=== PATIENT | female | born 1975 | race Caucasian/White ===

== ENCOUNTER 2024-08-20 20:40 | Inpatient (IN) ==
[2024-08-20 21:39] LABS: Albumin Globulin Ratio 1.3 (0.9-2); Albumin Level 4.3 gm/dl (3.4-5.0); BUN Creatinine Ratio 25.3 (10-20); Bilirubin,Total 0.3 mg/dl (0.2-1.0); Calcium 9.2 mg/dl (8.6-10.3); Creatinine Clr Calc Pharmacy 96.9 ml/min; Globulin 3.2 gm/dl (2.5-4.0); Potassium 3.5 mmol/L (3.5-5.1); Total Protein 7.5 gm/dl (6.0-8.3)
[2024-08-20 21:41] LABS: Basophils # (auto) 0.04 K/uL (0.00-0.20); Basophils % (auto) 0.4 %; Eosinophils # (auto) 0.18 K/uL (0.00-0.50); Eosinophils % (auto) 1.9 %; Hematocrit (blood only) 40.7 % (37.0-47.0); Immature Granulocytes # (auto) 0.04 K/uL (0.01-0.20); Immature Granulocytes % (auto) 0.4 %; Lymphocytes # (auto) 2.76 K/uL (1.20-3.40); Lymphocytes % (auto) 29.3 %; Mean Corpuscular Hemoglobin 32.6 pg (25.0-34.0); Mean Corpuscular Hgb Conc 34.4 g/dL (32.0-36.0); Mean Corpuscular Volume 94.7 fL (80.0-100.0); Mean Platelet Volume 11.7 fL (9.4-12.4); Monocytes # (auto) 0.66 K/uL (0.11-0.59); Neutrophils # (auto) 5.73 K/uL (1.40-6.50); Platelet Count 202 K/uL (130-400); RDW Standard Deviation 41.9 fL (36.4-46.3); White Blood Count 9.41 K/ul (4.8-10.8)
[2024-08-20 21:43] LABS: INR 0.9 (0.9-1.1); Partial Thromboplastin Ratio 0.9; Partial Thromboplastin Time 25 Seconds (21-31); Prothrombin Time 9.8 Seconds (9.0-12.0)
[2024-08-20 21:45] LABS: Troponin I High Sensitivity 46.6 pg/ml (0-14)
[2024-08-20 21:54] LABS: Adenovirus PCR Not Detected (NotDetected); Bordetella parapertussis PCR Not Detected (NotDetected); Bordetella pertussis PCR Not Detected (NotDetected); Chlamydia pneumoniae PCR Not Detected (NotDetected); Coronavirus 229E PCR Not Detected (NotDetected); Coronavirus CoV-2 (COVID19)PCR Not Detected (NotDetected); Coronavirus HKU1 PCR Not Detected (NotDetected); Coronavirus NL63 PCR Not Detected (NotDetected); Coronavirus OC43PCR Not Detected (NotDetected); Human Metapneumovirus PCR Not Detected (NotDetected); Influenza A PCR Not Detected (NotDetected); Influenza B PCR Not Detected (NotDetected); Mycoplasma pneumoniae PCR Not Detected (NotDetected); Parainfluenza Virus 1 PCR Not Detected (NotDetected); Parainfluenza Virus 2 PCR Not Detected (NotDetected); Parainfluenza Virus 3 PCR Not Detected (NotDetected); Parainfluenza Virus 4 PCR Not Detected (NotDetected); Respiratory Syncytial VirusPCR Not Detected (NotDetected); Rhinovirus/Enterovirus PCR DETECTED (NotDetected)
[2024-08-20] MEDS: SODIUM CHLORIDE 0.9% 1,000 ML IV ONE (22:03)
[2024-08-20] MEDS: dexAMETHasone**PF** 10 MG/ML VIAL IV ONE (22:03)
[2024-08-20] MEDS: ALBUT/IPRATROP 3MG/0.5MG NEB 3 ML VIAL NEB STA (22:03)
--- NOTE | 2024-08-20 22:13 | Emergency Department Note ---
History of Present Illness General Chief complaint: Shortness of Breath/Dyspnea Stated complaint: SOB, FELL HIT HEAD, Time Seen by Provider: 08/20/24 21:53 History of Present Illness This 49-year-old female that smokes presents ER complaint of chest pain, difficulty breathing and coughing who passed out today and struck her head. Patient states she feels quite short of breath. No history of PE DVT or heart disease. She does not go to the doctor. She has traveled recently. Patient denies fever, chills, leg pain or swelling, abdominal pain, vomiting, diarrhea. Home Medications Medication Instructions Recorded Confirmed Type ASPIRIN 650 mg PO UD PRN Irregular Heart 12/20/15 History Rate ##0 Albuterol Inhaler (VENTOLIN 2 puff inhalation UD PRN Shortness 12/20/15 History INHALER) of Breath #0 Inhalers Allergies Allergy/AdvReac Type Severity Reaction Status Date / Time No Known Allergies Allergy Unverified 03/28/15 21:41 Past Med/Surg History Problem List (Updated 08/21/24 @ 02:57 by Laine Jimenez PA-C) Acute bronchitis due to Rhinovirus (Acute) Shortness of breath Elevated troponin Sinusitis, acute (Acute) Pulmonary embolism (Acute) Bronchitis (Acute) Lumbar strain (Acute) Palpitations (Acute) Precordial chest pain (Acute) Social History Smoking Status: Current every day smoker Tobacco Type: Cigarettes Second Hand Exposure: Yes; Do You Dip or Chew Tobacco: No; Hx Alcohol Use: Yes Alcohol type: beer Hx Substance Use: Yes Preferred Language: Welsh Communication Ability: Effective Food Processor Required: No Beliefs That Will Affect Care: None Current Living Situation: Other Current Living Situation Comment: Nephew Other Information That Helps Us Care for You: No Feels Safe at Home: Yes Safety Concerns: Feels Safe At This Time Assistive Devices: None Review of Systems A total of 10 systems reviewed and were otherwise negative Physical Exam Vital Signs Vital Signs - 24 hr 08/20/24 20:47 08/20/24 20:51 08/20/24 21:59 Temperature 36.6 C Temperature Source Oral Pulse Rate 111 H 110 H Pulse Rate from SpO2 Sensor Respiratory Rate 20 Respiratory Effort / Characteristics Non-Labored Non-Labored Spontaneous Respiratory Depth Normal Shallow Respiratory Pattern Regular Blood Pressure 135/91 Blood Pressure Mean 105 Pulse Oximetry 91 Oxygen Delivery Method Room Air Room Air Sepsis Recent Fever Within 48 Hours No Sepsis New/Unexplained Change in Mental Status N/A Sepsis Action Taken by Nursing No Action Required 08/20/24 22:42 08/20/24 23:06 Temperature Temperature Source Pulse Rate 111 H Pulse Rate from SpO2 Sensor 109 H Respiratory Rate 22 Respiratory Effort / Characteristics Respiratory Depth Respiratory Pattern Blood Pressure 137/91 Blood Pressure Mean 106 Pulse Oximetry 93 96 Oxygen Delivery Method Room Air Room Air Sepsis Recent Fever Within 48 Hours Sepsis New/Unexplained Change in Mental Status Sepsis Action Taken by Nursing VITALS: Vitals are noted on the nurse's note and reviewed by myself. Vital signs pulse ox 91%. GENERAL: White female working to breathe, in acute distress, nondiaphoretic, well-developed well-nourished. SKIN: The skin was without rashes, erythema, edema, or bruising. There is no tenting of the skin. Capillary reflex less than 2 seconds. HEAD: Normocephalic atraumatic. EARS: External auditory canals clear EYES: Pupils equal round and reactive to light and accommodation. Conjunctivae without injection, sclerae without icterus. Extraocular movements intact. NOSE: Patent, no discharge. MOUTH: Mucous membranes moist. Pharynx without erythema or exudate. Uvula midline. Airway patent. Tongue does not deviate. NECK: Supple without nuchal rigidity. No lymphadenopathy. No thyromegaly. Cervical spine is nontender. No JVD. HEART: Regular rate and rhythm LUNGS: Diffuse inspiratory and end expiratory wheezes, No retractions or accessory muscle use. ABDOMEN: Positive bowel sounds x 4. Normal tympanic percussion. Soft, nontender, without masses or organomegaly. Vo sign negative. No guarding or rebound tenderness. No CVA tenderness MUSCULOSKELETAL: No muscle atrophy, erythema, or edema noted. NEURO: Patient was alert and oriented to person place and time. Normal sensation to light and sharp touch. No focal neurological deficits. Course Administered Medications Heparin Sodium/Dextrose (Heparin Sodium/Dextrose) 25,000 units in 500 mls @ 25 mls/hr IV .Q20H [facility]; Protocol Stop: 09/19/24 22:59 Last Titration: 08/21/24 00:55 Dose: 1,250 units/hr, 25 mls/hr Documented By: MIAN Co-signed By: Admin: 08/20/24 23:41 Dose: 1,250 units/hr, 25 mls/hr Documented By: Co-signed By: DEANN Discontinued Medications Albuterol (Albut/Ipratrop 3mg/0.5mg Neb 3 Ml Vial) 3 ml NEB NOW STA; Protocol Stop: 08/20/24 21:59 Last Admin: 08/20/24 22:03 Dose: 3 ml Documented By: JAY Dexamethasone Sodium Phosphate (DexamethasonePf 10 Mg/Ml Vial) 10 mg IV NOW ONE Stop: 08/20/24 22:00 Last Admin: 08/20/24 22:03 Dose: 10 mg Documented By: JAY Heparin Sodium (Porcine) (Heparin Sod (Porcine) 1000 Unit/Ml) 5,000 units IV NOW ONE Stop: 08/20/24 23:31 Last Admin: 08/20/24 23:40 Dose: 5,000 units Documented By: Co-signed By: DEANN Sodium Chloride (Nss) 1,000 mls @ 999 mls/hr IV .Q1H1M ONE Stop: 08/20/24 22:58 Last Infusion: 08/20/24 23:12 Dose: Infused Documented By: Admin: 08/20/24 22:03 Dose: 999 mls/hr Documented By: JAY Ampicillin Sodium/Sulbactam Sodium (Unasyn) 1,500 mg in 100 mls @ 200 mls/hr IV NOW STA Stop: 08/20/24 23:36 Last Infusion: 08/21/24 01:30 Dose: Infused Documented By: Admin: 08/21/24 00:43 Dose: 200 mls/hr Documented By: Ioversol (Optiray 320 125ml) 118 ml IV ONCE ONE Stop: 08/20/24 22:25 Last Admin: 08/20/24 22:24 Dose: 118 ml Documented By: LAKESHA Critical Care Time Critical Care Time: Yes Total Critical Care Time: 35 I have personally spent 35 minutes of critical care time in the direct management of this patient. This includes bedside care, interpretation of diagnostic studies, and testing, discussion with consultants, patient, and family members, and other required patient management activities. This 35 minutes is in excess of all separately billable procedures. Medical Decision Making Medical Records Attestation: I reviewed the patient's medical records. Home Medications Current Medication List: was personally reviewed by me Laboratory Data Attestation: I reviewed the patient's lab results. 08/20/24 20:58 08/20/24 20:58 Lab Results 08/20/24 08/20/24 08/20/24 Range/Units 20:50 20:58 22:38 WBC 9.41 (4.8-10.8) K/ul RBC 4.30 (4.20-5.40) M/uL Hgb 14.0 (12.0-16.0) g/dl Hct 40.7 (37.0-47.0) % MCV 94.7 (80.0-100.0) fL MCH 32.6 (25.0-34.0) pg MCHC 34.4 (32.0-36.0) g/dL RDW Std Deviation 41.9 (36.4-46.3) fL RDW Coeff of Shanti 12.0 (11.5-14.5) % Plt Count 202 (130-400) K/uL MPV 11.7 (9.4-12.4) fL Immature Gran % (Auto) 0.4 % Neut % (Auto) 61.0 % Lymph % (Auto) 29.3 % [place] % (Auto) 7.0 % Eos % (Auto) 1.9 % Baso % (Auto) 0.4 % Neut # (Auto) 5.73 (1.40-6.50) K/uL Lymph # (Auto) 2.76 (1.20-3.40) K/uL [place] # (Auto) 0.66 H (0.11-0.59) K/uL Eos # (Auto) 0.18 (0.00-0.50) K/uL Baso # (Auto) 0.04 (0.00-0.20) K/uL Immature Gran # (Auto) 0.04 (0.01-0.20) K/uL PT 9.8 (9.0-12.0) Seconds INR 0.9 (0.9-1.1) APTT 25 (21-31) Seconds PTT Ratio 0.9 Sodium 137 (136-145) mmol/L Potassium 3.5 (3.5-5.1) mmol/L Chloride 105 (98-107) mmol/L Carbon Dioxide 21 (21-32) mmol/L Anion Gap 11 (3-11) BUN 20 (6-23) mg/dl Creatinine 0.79 (0.6-1.2) mg/dl Est Cr Clr Drug Dosing 96.9 ml/min eGFR 92.21 BUN/Creatinine Ratio 25.3 H (10-20) Glucose 153 H (70-99(Fasting)) mg/dl Calcium 9.2 (8.6-10.3) mg/dl Magnesium 1.9 (1.7-2.4) mg/dl Total Bilirubin 0.3 (0.2-1.0) mg/dl AST 44 H (13-39) U/L ALT 29 (7-52) U/L Alkaline Phosphatase 79 (34-104) U/L Troponin I High Sens 46.6 H 443.9 H* D (0-14) pg/ml Total Protein 7.5 (6.0-8.3) gm/dl Albumin 4.3 (3.4-5.0) gm/dl Globulin 3.2 (2.5-4.0) gm/dl Albumin/Globulin Ratio 1.3 (0.9-2) TSH 3.774 (0.300-4.500) uIu/ml HCG, Qual Negative (Negative) Adenovirus (PCR) Not Detected (NotDetected) B. pertussis DNA (PCR) Not Detected (NotDetected) B.parapertussis DNA PCR Not Detected (NotDetected) C. pneumoniae DNA (PCR) Not Detected (NotDetected) Coronavirus OC43 (PCR) Not Detected (NotDetected) Coronavirus HKU1 (PCR) Not Detected (NotDetected) Coronavirus 229E (PCR) Not Detected (NotDetected) SARS-CoV-2 (PCR) Not Detected (NotDetected) Coronavirus NL63 (PCR) Not Detected (NotDetected) Human Metapneumovir PCR Not Detected (NotDetected) Influenza Type A (PCR) Not Detected (NotDetected) Influenza Type B (PCR) Not Detected (NotDetected) M. pneumoniae (PCR) Not Detected (NotDetected) Parainfluenza 1 (PCR) Not Detected (NotDetected) Parainfluenza 2 (PCR) Not Detected (NotDetected) Parainfluenza 3 (PCR) Not Detected (NotDetected) Parainfluenza 4 (PCR) Not Detected (NotDetected) RSV (PCR) Not Detected (NotDetected) Entero/Rhino (PCR) DETECTED A (NotDetected) Imaging Data Attestation: I personally reviewed and interpreted this imaging study as follows: Radiologist's Impression: Chest CTA 08/20/24 21:54 CR Exam(s): CTA CHEST IV Amt: 117 cc opti 320 EXAM: CT Angiography Chest With Intravenous Contrast CLINICAL HISTORY: Reason for exam: PE. TECHNIQUE: Axial computed tomographic angiography images of the chest with intravenous contrast. CTDI is 27.22 mGy and DLP is 906.3 mGy-cm. Automated exposure control was utilized for the study. A dose lowering technique was utilized adhering to the principles of ALARA. MIP reconstructed images were created and reviewed. COMPARISON: CTA chest: 12/21/2015 FINDINGS: Pulmonary arteries: Demonstrates bilaterally abnormal intraluminal filling defects/acute pulmonary emboli involving upper/lower lobar and segmental arterial branches. There is evidence of RV dysfunction with abnormal RV/LV ratio. Aorta: No acute findings. No thoracic aortic aneurysm. Lungs: Central airways are patent. Mild bilateral bronchial wall thickening. No mass. No consolidation. Pleural space: Unremarkable. No significant effusion. No pneumothorax. Heart: Unremarkable. No cardiomegaly. No significant pericardial effusion. Bones/joints: No acute fracture. No dislocation. Soft tissues: Unremarkable. Lymph nodes: Unremarkable. No enlarged lymph nodes.. IMPRESSION: Bilateral acute pulmonary embolism with evidence of RV dysfunction. . Communications: Call Doctor Pulmonary Embolism Electronically signed by: Freedom Burnham MD, DABR 08/21/24 02:[address] 08/20/24 21:58 Exam(s): CT HEAD Without Contrast EXAM: CT Head Without Intravenous Contrast CLINICAL HISTORY: Reason for exam: HI. TECHNIQUE: Axial computed tomography images of the head/brain without intravenous contrast. CTDI is 36.05 mGy and DLP is 546.36 mGy-cm. Automated exposure control was utilized for the study. A dose lowering technique was utilized adhering to the principles of ALARA. COMPARISON: None. FINDINGS: Motion/beam hardening-induced image degradation limits anatomical details. Brain: Unremarkable. No hemorrhage. No significant white matter disease. No edema. Ventricles: Unremarkable. No ventriculomegaly. Bones/joints: Unremarkable. No acute fracture. Soft tissues: Unremarkable. Sinuses: Moderately severe bilateral ethmoid sinusitis. Left sphenoid sinusitis.. Mastoid air cells: Unremarkable as visualized. No mastoid effusion. IMPRESSION: No acute intracranial abnormality noted. Moderately severe bilateral ethmoid sinusitis. Mild/moderate left sphenoid sinusitis. . Electronically signed by: Freedom Burnham MD, VALERIER 08/20/24 23:06 PM MDM Narrative Prior records/ancillary studies reviewed. Triage Nursing notes reviewed. Additional history obtained from the family. The patient's history was concerning for respiratory difficulties. Differential diagnosis: Etiologies such as infections, reactive airway disease, pneumonia, pneumothorax, COPD, CHF, cardiac ischemia, pulmonary embolism, musculoskeletal, gastrointestinal, as well as others were entertained. Physical examination: As above. ER treatment provided: An order was placed for continuous cardiac monitoring. The monitor shows a rate of 60-1 20 with a sinus rhythm per my interpretation. Nebulizer, steroids, IV fluids Limited Point of Care FAST Ultrasound performed by me: Indication: Syncope Findings: Limited cardiac ultrasonography via subxiphoid and parasternal long view showed cardiac wall motion activity, no pericardial fluid, no tamponade. Limited chest ultrasound revealed bilateral lung sliding. Limited abdominal ultrasound revealed no free fluid within Bone's pouch, splenorenal space, or the pouch of Griffin. Impression: Negative FAST exam. Heparin was ordered for PEs Unasyn was ordered for extensive sinusitis On reassessment the patient felt better. Diagnostic interpretation by me: The electrocardiogram was ordered for SOB. ECG: Normal sinus, normal intervals, minimal ST depression in V5 and V6, rate of 109. Impression sinus tachycardia with minimal ST depression in the lateral leads independently interpreted by myself EKG ordered for elevated troponin EKG: Normal sinus, normal intervals, no acute ST-T wave changes, persistent minimal ST depression in V5 and V6 with rate of 106. Impression sinus tachycardia with unchanged ST depression in the lateral leads independently interpreted by myself The labs Independently Interpreted by myself revealed elevated troponin repeat was ordered Positive rhinovirus on bio fire Hypercoagulable workup was sent Imaging studies: Chest x-ray with no acute consolidation, pneumothorax or free air per my independent interpretation CTA concerning for PEs and hypercoagulable workup was initiated. Heparin drip was ordered Negative head CT HEART SCORE: Hx: high/mod/low suspicion: 1 ECG: ST depression/nonspecific changes/normal: 1 Age: Greater than 65/45-64/less than 45: 1 Risk factors: (Hypertension, hyperlipidemia, diabetes, coronary disease, tobacco use, cocaine use): 1 Troponin: Greater than 2 times normal limits/1-2 times normal limits/normal: 1 Total: 4 Consultation: A consultation was placed with the hospitalist. The case was discussed and diagnostics were reviewed. The patient was evaluated in the ER for further treatment. PESI Score Age: 49 Male gender: 0 History of cancer: 0 Heart failure: 0 Chronic lung disease: 0 Pulse >=10/min: 20 Systolic blood pressure <100 mmH Respiratory rate >=0/min: 0 Temperature <36 Celcius: 0 Altered mental status: 0 Arterial oxygen saturation <90 percent: 0 Total: 68 Class I Low risk <66 Class II 66 to 85 Class III High risk 86 to 105 Class IV 106 to 125 Class V >125 This appears to be consistent with bilateral PEs with sinusitis. Patient was heparinized as above. Repeat EKG is unchanged. She was started antibiotics for the sinus infection. Medicine was consulted case discussed. Patient will be admitted to the medical service.. By the evaluation outlined above emergent etiologies such as CHF, reactive airway disease, pneumothorax, musculoskeletal, serious bacterial infections, as well as others were deemed relatively unlikely. The pt informed about the findings as listed above. All questions were answered and pleased with the treatment. The chart was completed utilizing Hubs1 Speech voice recognition software. Grammatical errors, random word insertions, pronoun errors, and incomplete sentences are an occassional consequence of this system due to software limitations, ambient noise, and hardware issues. Any formal questions or concerns about the content, text, or information contained within the body of this dictation should be directly addressed to the physician assistant womens volleyball coach for clarification. Impression & Plan Pulmonary embolism, Sinusitis, acute, Acute bronchitis due to Rhinovirus Discharge Plan Visit Data Chief Complaint: Shortness of Breath/Dyspnea Stated Complaint: SOB, FELL HIT HEAD, ED Provider: Georgina Al ED Midlevel Provider: Laine Jimenez Discharge Problem: Pulmonary embolism, Sinusitis, acute, Acute bronchitis due to Rhinovirus Patient Disposition: Admitted As Inpatient Condition: Fair Discharge Instructions Interventions: ED Discharge Assessment Last Done: 08/21/24 01:29 Discharge Problem: Pulmonary embolism Qualifiers: Pulmonary embolism type: unspecified Chronicity: acute Acute cor pulmonale presence: unspecified Qualified Code(s): I26.99 - Other pulmonary embolism without acute cor pulmonale
[2024-08-20 22:20] LABS: Magnesium 1.9 mg/dl (1.7-2.4)
[2024-08-20 22:22] LABS: Pregnancy Test, Serum Negative (Negative)
[2024-08-20] MEDS: OPTIRAY 320 125ml IV ONE (22:24)
[2024-08-20 22:37] LABS: Thyroid Stimulating Hormone 3.774 uIu/ml (0.300-4.500)
[2024-08-20] MEDS ORDERED: Heparin IV Adult Wt-Based Standard w/ INITIAL Bolus Protocol IV STA (22:41)
[2024-08-20] MEDS ORDERED: HEPARIN SOD (PORCINE) 1000 UNIT/ML IV ONE (22:56)
--- NOTE | 2024-08-20 23:07 | CT Scan Report ---
Exam(s): CT HEAD Without Contrast EXAM: CT Head Without Intravenous Contrast CLINICAL HISTORY: Reason for exam: HI. TECHNIQUE: Axial computed tomography images of the head/brain without intravenous contrast. CTDI is 36.05 mGy and DLP is 546.36 mGy-cm. Automated exposure control was utilized for the study. A dose lowering technique was utilized adhering to the principles of ALARA. COMPARISON: None. FINDINGS: Motion/beam hardening-induced image degradation limits anatomical details. Brain: Unremarkable. No hemorrhage. No significant white matter disease. No edema. Ventricles: Unremarkable. No ventriculomegaly. Bones/joints: Unremarkable. No acute fracture. Soft tissues: Unremarkable. Sinuses: Moderately severe bilateral ethmoid sinusitis. Left sphenoid sinusitis.. Mastoid air cells: Unremarkable as visualized. No mastoid effusion. IMPRESSION: No acute intracranial abnormality noted. Moderately severe bilateral ethmoid sinusitis. Mild/moderate left sphenoid sinusitis. . Electronically signed by: Freedom Burnham MD, DABR 08/20/24 23:06 PM
--- NOTE | 2024-08-20 23:38 | History & Physical Report ---
Date of Service August 20, 2024 Assessment & Plan (1) Pulmonary embolism: (2) Sinusitis, acute: (3) Elevated troponin: (4) Shortness of breath: Plan 49 year old female, current everyday smoker, presenting after acute worsening of SOB with associated syncopal episode and head trauma. #Bilateral PEs/Elevated Troponin: - EKG on admission with sinus tachycardia, rate 106, no ischemic changes appreciated. - CTA notable for bilateral PEs, LE venous doppler pending, thrombophilia labs pending - Continue heparin drip - Troponin 47->444, continue to trend troponin - TTE ordered, pending #Acute sinusitis/shortness of breath: - Respiratory Biofire +entero/rhinovirus - CT head with bilateral ethmoid sinusitis + left sphenoid sinusitis - will treat with PO Augmentin BIDx5-7 days - Suspect some component of RAD based on smoking history and exam findings - tx with PO prednisone 40mg dailyx5 days + prn duonebs - AM labs: CBC, BMP Dispo: admit to PCU-tele FEN/GI: regular diet VTE ppx: Heparin Full code History of Present Illness Primary Care Provider: NO PCP 49 year old female, current everyday smoker, presenting after acute worsening of SOB with associated syncopal episode and head trauma. Patient states that she had acute bronchitis at the beginning of July, was treated with abx and given an albuterol inhaler. Again became sick with sinus congestion, cough about 1 week ago with progression of shortness of breath over the week. Today, patient was in [facility] bathroom, suddenly felt her heart racing, had acute worsening of shortness of breath and had a brief syncopal episode. Pt admits to poor PO fluid intake over the past couple days. Denies formal RAD diagnosis but had been using her albuterol this week, total of 8 puffs daily, with some relief. At present, patient denies chest pain, fever/chills, N/V/D but endorses ongoing shortness of breath, minimal change after receiving nebulizer treatment. Denies h/o cardiac issues. Denies h/o prior DVT/PE. Most recent travel was 07/30, drove to [place] continuously without stopping - total of 6 hours in the car. ED Course: CT head with bilateral ethmoid sinusitis and left sphenoid sinusitis, EKG with sinus tachycardia, troponin 46->444, CTA demonstrates bilateral PEs, respiratory biofire +entero/rhinovirus Patient received dose of dexamethasone and nebulizer treatment, 1L IV fluids, started on heparin drip. Allergies Allergy/AdvReac Type Severity Reaction Status Date / Time No Known Allergies Allergy Unverified 08/21/24 13:53 Home Medications Medication Instructions Recorded Confirmed Type No Known Home Medications 08/21/24 08/21/24 History Past Med/Surg History Problem List (Updated 08/21/24 @ 14:55 by NOEMI Ford) COPD (chronic obstructive pulmonary disease) Rhinovirus Lower extremity deep venous thrombosis Bilateral pulmonary embolism Acute bronchitis due to Rhinovirus (Acute) Shortness of breath Elevated troponin Sinusitis, acute (Acute) Pulmonary embolism (Acute) Bronchitis (Acute) Lumbar strain (Acute) Palpitations (Acute) Precordial chest pain (Acute) Social History Smoking Status: Current every day smoker Tobacco Type: Cigarettes Second Hand Exposure: Yes; Do You Dip or Chew Tobacco: No; Hx Alcohol Use: Yes Alcohol type: beer Hx Substance Use: Yes Preferred Language: Kinyarwanda Communication Ability: Effective Electric Detector Operator Required: No Beliefs That Will Affect Care: None Current Living Situation: Other Current Living Situation Comment: Nephew Other Information That Helps Us Care for You: No Feels Safe at Home: Yes Safety Concerns: Feels Safe At This Time Assistive Devices: None Review of Systems Review of Systems: as per HPI Physical Exam Physical Exam: General: Alert and oriented. No acute distress Cardiac: +tachycardia, regular rhythm, no murmurs appreciated Respiratory: +bilateral expiratory wheezes on auscultation, +dyspnea on exertion Extremities: No lower extremity edema, calves non-tender bilaterally Results & Data Results & Data Vital Signs (Past 12 Hours) Vital Signs Temp Pulse Resp BP Pulse Ox O2 Del Method 08/20/24 23:06 111 H 22 137/91 96 Room Air 08/20/24 22:42 93 Room Air 08/20/24 21:59 110 H 08/20/24 20:51 Room Air 08/20/24 20:47 36.6 C 111 H 20 135/91 91 Room Air Supervising Physician Co-Signing Physician Notes Attending addendum: I have physically seen this patient, have supervised the medical residents activities, and agree with the H&P unless as otherwise noted. Assessment and Plan: Bilateral pulmonary emboli/elevated creatinine/right heart strain- The patient will be admitted to telemetry for serial cardiac enzymes, serial EKG's, cardiac rhythm monitoring and a 2-D echocardiogram with Dopplers. Troponin 46.6, with follow-up 443.9 Continue heparin drip per protocol has begun in the ED Conversion to DOAC in the a.m. to be determined by daytime service Nasal cannula oxygen, titrate to keep pulse ox around 94-95% Lower extremity venous Doppler ordered and pending Hypercoagulable panel pending Consult cardiology and pulmonology Enterovirus/rhinovirus infection/sinusitis/COPD- CT head with notation of bilateral ethmoid sinusitis and left sphenoid sinusitis- Patient did receive dexamethasone 10 mg IV and Unasyn 3 g IV from the ED Placed on course of oral Augmentin and prednisone taper as noted Resident Activity Tracking Resident Involvement: Resident Care Provided Care Provided: Adult Hospital Medicine (1) Pulmonary embolism Acute cor pulmonale presence: unspecified Chronicity: acute Pulmonary embolism type: unspecified Qualified Code(s): I26.99 - Other pulmonary embolism without acute cor pulmonale
[2024-08-20] MEDS: HEPARIN SOD (PORCINE) 1000 UNIT/ML IV ONE (23:40)
[2024-08-20] MEDS: HEPARIN SODIUM/DEXTROSE 25,000 UNITS/500 ML BAG IV SCH (23:41)
[2024-08-21] MEDS: AMPICILLIN/SULBACTAM SOD 1,500 MG/100 ML BAG IV STA (00:43)
[2024-08-21] MEDS ORDERED: ALUMINUM/MAGNESIUM SUSP 30 ML UDC PO PRN (01:23)
[2024-08-21] MEDS ORDERED: MAGNESIUM HYDROXIDE SUSP 30 ML UDC PO PRN (01:23)
[2024-08-21] MEDS ORDERED: ALBUT/IPRATROP 3MG/0.5MG NEB 3 ML VIAL NEB PRN (01:23)
[2024-08-21] MEDS ORDERED: POLYETHYLENE (MIRALAX) 17 GM PACK PO PRN (01:23)
--- NOTE | 2024-08-21 02:50 | CT Scan Report ---
Exam(s): CTA CHEST IV Amt: 117 cc opti 320 EXAM: CT Angiography Chest With Intravenous Contrast CLINICAL HISTORY: Reason for exam: PE. TECHNIQUE: Axial computed tomographic angiography images of the chest with intravenous contrast. CTDI is 27.22 mGy and DLP is 906.3 mGy-cm. Automated exposure control was utilized for the study. A dose lowering technique was utilized adhering to the principles of ALARA. MIP reconstructed images were created and reviewed. COMPARISON: CTA chest: 12/21/2015 FINDINGS: Pulmonary arteries: Demonstrates bilaterally abnormal intraluminal filling defects/acute pulmonary emboli involving upper/lower lobar and segmental arterial branches. There is evidence of RV dysfunction with abnormal RV/LV ratio. Aorta: No acute findings. No thoracic aortic aneurysm. Lungs: Central airways are patent. Mild bilateral bronchial wall thickening. No mass. No consolidation. Pleural space: Unremarkable. No significant effusion. No pneumothorax. Heart: Unremarkable. No cardiomegaly. No significant pericardial effusion. Bones/joints: No acute fracture. No dislocation. Soft tissues: Unremarkable. Lymph nodes: Unremarkable. No enlarged lymph nodes.. IMPRESSION: Bilateral acute pulmonary embolism with evidence of RV dysfunction. . Communications: Call Doctor Pulmonary Embolism Electronically signed by: Freedom Burnham MD, DABR 08/21/24 02:49 AM
--- NOTE | 2024-08-21 03:46 | XRay Report ---
Exam(s): XR CXR 1 VIEW EXAM: XR Chest, 1 View CLINICAL HISTORY: Reason for exam: Chest pain, nonspecific. TECHNIQUE: Frontal view of the chest. COMPARISON: No relevant prior studies available. IMPRESSION: 1. No acute cardiopulmonary abnormality. Electronically signed by: Dominik Zamora MD 08/21/24 03:45 AM
--- NOTE | 2024-08-21 03:48 | Ultrasound Report ---
EXAM: US venous doppler LE BI CLINICAL HISTORY: PEs. RLE: No definite DVT detected. Duplication of FV seen, both appear patent. LLE: Duplication of FV seen. Partially occlusive thrombus seen from the Dist FV extending to the prox POP V. Thrombus also detected in on of the sural veins in the calf extending from behind the knee to just before the mid calf. TECHNIQUE: Ultrasound examination of bilateral lower extremity veins was performed in real-time and duplex. One or more of the following were performed- spectral analysis, resistive index, waveform analysis, and pulsed Doppler. COMPARISON: None. FINDINGS: Partially occlusive thrombus is seen from the left distal femoral vein extending to the proximal popliteal vein. Thrombus was also detected in one of the sural veins in the calf extending from behind the knee to just before the mid-calf. Normal phasic, non-pulsatile, and spontaneous flow is noted in the right common femoral, superficial femoral, popliteal, and posterior tibial and peroneal veins. Visualized veins of the right lower extremity demonstrate normal compressibility. No sonographic evidence of acute deep vein thrombosis (DVT) is detected in the visualized veins of the right lower extremity. Duplication of bilateral femoral vein. Compression: Partial flow and partial compression were noted in the distal left superficial femoral, possible proximal popliteal, and sural veins of the left upper leg from knee to mid-calf. The rest of the left veins are normal. All right-sided evaluated veins compress fully with applied transducer pressure. IMPRESSION: 1. Left lower extremity venous findings are suggestive of a partially occlusive thrombus seen from the distal left superficial femoral veins extending to the proximal popliteal vein. Thrombus is also detected in one of the sural veins in the calf extending from behind the knee to just before the mid-calf. A close follow-up is suggested for further confirmation and evaluation, to exclude technical errors if any during this study. 2. No sonographic evidence of acute DVT was detected in the right common femoral, superficial femoral, popliteal posterior tibial, and peroneal veins, at the time of examination. Disclaimer: DVT could be missed early in the disease when the clot burden is minimal. For patients with moderate and high pretest probability of DVT and negative ultrasound, the [employer] clinical guidelines recommend testing with a D-dimer assay or repeat ultrasound in 5-7 days. If symptoms worsen, the Society of radiologists in ultrasound recommends repeating ultrasound even earlier. Electronically signed by Roberto Rizo 08-21-2024 03:48 AM
[2024-08-21 06:04] LABS: Hematocrit (blood only) 36.1 % (37.0-47.0); Hemoglobin 12.7 g/dl (12.0-16.0); Mean Corpuscular Hemoglobin 32.5 pg (25.0-34.0); Mean Corpuscular Hgb Conc 35.2 g/dL (32.0-36.0); Mean Corpuscular Volume 92.3 fL (80.0-100.0); Mean Platelet Volume 11.7 fL (9.4-12.4); Platelet Count 176 K/uL (130-400); RDW Coefficient of Variation 11.8 % (11.5-14.5); RDW Standard Deviation 39.8 fL (36.4-46.3); Red Blood Count 3.91 M/uL (4.20-5.40); White Blood Count 6.34 K/ul (4.8-10.8)
[2024-08-21 06:18] LABS: Calcium 8.8 mg/dl (8.6-10.3); Creatinine Clr Calc Pharmacy 130.9 ml/min
[2024-08-21 06:30] LABS: ANTI-Xa, UFH(UnfractionatedHep 0.47 IU/ml (0.3-0.7)
[2024-08-21] MEDS: AMOXICILLIN/CLAVULANATE 875 MG TAB PO SCH (08:51)
[2024-08-21] MEDS: predniSONE 20 MG TAB PO SCH (08:51)
--- NOTE | 2024-08-21 13:07 | Pulmonary Consultation ---
Date of Consultation August 21, 2024 Assessment & Plan (1) Pulmonary embolism: Acute cor pulmonale presence: unspecified Chronicity: acute Pulmonary embolism type: unspecified Qualified Code(s): I26.99 - Other pulmonary embolism without acute cor pulmonale (2) Acute bronchitis due to Rhinovirus: Plan Impression: 49-year-old female with history of tobacco abuse admitted with acute PE presenting with syncopal event. She has elevated cardiac enzymes and an echocardiogram demonstrating RV strain. Recommendations: 1. Acute PE: Certainly would have considered thrombolysis on presentation given syncopal event and elevated biomarkers however the patient is now almost 24 hours out from her event. I discussed with her risk of bleeding associated with thrombolytics. She think she is doing okay with heparin and wants to continue with heparin for now. Will continue to monitor with consideration for salvage thrombolytics should the patient experience increasing palpitations or recurrent syncope or presyncope. 2. The utility of a thromboembolic evaluation in the acute setting is unclear. Multiple labs have been sent. This is an unprovoked event and given the severity, can easily make an argument for lifelong anticoagulation. At a minimum the patient should get 6 months of anticoagulation. If she wants to stop at that point time would recommend consultation with hematology oncology for evaluation of thrombophilia at that point in time. 3. Age-appropriate cancer screening as the outpatient recommended. 4. COPD: Continue Anoro. Can continue to use nebulized therapies as needed. She is on antibiotics for sinus infection which should cover acute exacerbation of COPD. Smoking cessation recommended. Outpatient PFTs should be obtained. 5. The above recommendations and plan were discussed with the patient as well as with the admitting hospitalist service. Will continue to follow with you. Feel free to contact us with questions or concerns History of Present Illness Attending Physician: Akilah Romero MD History of Present Illness Asked by hospitalist to assist in evaluation management as patient admitted with thromboembolic disease. History is obtained from discussion with the patient as well as review of the electronic medical record. Patient is a 49-year-old female with extensive history of tobacco abuse who has chronic shortness of breath but yesterday experienced acute onset of shortness of breath followed by a syncopal episode at [facility]. She fell down and hit her head was apparently unconscious in the bathroom for an unknown period of time. She eventually was able to get to her friend's car and was brought to the emergency room. She was tachycardic and presyncopal in the emergency room and a CT scan demonstrated thromboembolic disease. Her initial troponin was elevated. Patient has been initiated on heparin. Pulmonary was consulted for additional evaluation and management. The patient reports no prior history of thromboembolic disease. No family history of clotting disorders that she is aware of. She is not particularly sedentary at baseline. No history of trauma. She states she had an abnormal breast exam about 6 years ago but mammogram at that point time was unremarkable. She has not undergone any additional cancer screening. The patient continues to experience shortness of breath with significant activity. No additional syncopal or presyncopal events. She does have some lower extremity edema Allergies Allergy/AdvReac Type Severity Reaction Status Date / Time No Known Allergies Allergy Unverified 03/28/15 21:41 Home Medications Medication Instructions Recorded Confirmed Type ASPIRIN 650 mg PO UD PRN Irregular Heart 12/20/15 History Rate ##0 Albuterol Inhaler (VENTOLIN 2 puff inhalation UD PRN Shortness 12/20/15 History INHALER) of Breath #0 Inhalers Patient History Social History Smoking Status: Current every day smoker Tobacco Type: Cigarettes Second Hand Exposure: Yes; Do You Dip or Chew Tobacco: No; Hx Alcohol Use: Yes Alcohol type: beer Hx Substance Use: Yes Preferred Language: Somali Communication Ability: Effective Almond Huller Required: No Beliefs That Will Affect Care: None Current Living Situation: Other Current Living Situation Comment: Nephew Other Information That Helps Us Care for You: No Feels Safe at Home: Yes Safety Concerns: Feels Safe At This Time Assistive Devices: None Review of Systems Review of Systems: Please refer to admission H&P. No additions or deletions Physical Exam Constitutional: WD/WN, vitals as above Neck: trachea midline, no thyromegaly Respiratory: normal respiratory effort, lungs clear to auscultation Cardiovascular: RRR, no murmur, no edema Gastrointestinal (Abdomen): normal bowel sounds, soft, nontender, no hepatosplenomegaly Musculoskeletal: Extremities: extremities normal to inspection Skin: no rashes, warm and dry Neurologic: Nonfocal exam Lymphatic: no cervical lymphadenopathy Results & Data Results & Data Vital Signs (Past 12 Hours) Vital Signs Temp Pulse Pulse Resp BP Pulse Ox O2 Del Method 08/21/24 11:02 36.8 C 93 H 20 145/94 H 97 Room Air 08/21/24 08:18 36.6 C 101 H 18 131/85 94 Room Air 08/21/24 08:10 Room Air 08/21/24 07:20 99 H 08/21/24 04:00 36.6 C 100 H 22 130/86 94 Room Air 08/21/24 02:00 105 H 08/21/24 01:35 Room Air 08/21/24 01:29 Room Air Critical Care Results & Data Vital Signs (Past 12 Hours) Vital Signs Temp Pulse Pulse Resp BP Pulse Ox O2 Del Method 08/21/24 11:02 36.8 C 93 H 20 145/94 H 97 Room Air 08/21/24 08:18 36.6 C 101 H 18 131/85 94 Room Air 08/21/24 08:10 Room Air 08/21/24 07:20 99 H 08/21/24 04:00 36.6 C 100 H 22 130/86 94 Room Air 08/21/24 02:00 105 H 08/21/24 01:35 Room Air 08/21/24 01:29 Room Air Lab & Micro Results (Past 24 Hours) RBC 3.91 M/uL (4.20-5.40) L 08/21/24 WBC 6.34 K/ul (4.8-10.8) 08/21/24 Hgb 12.7 g/dl (12.0-16.0) 08/21/24 Hct 36.1 % (37.0-47.0) L 08/21/24 MCV 92.3 fL (80.0-100.0) 08/21/24 MCH 32.5 pg (25.0-34.0) 08/21/24 MCHC 35.2 g/dL (32.0-36.0) 08/21/24 RDW Standard Deviation 39.8 fL (36.4-46.3) 08/21/24 RDW Coefficient of Variation 11.8 % (11.5-14.5) 08/21/24 Plt Count 176 K/uL (130-400) 08/21/24 MPV 11.7 fL (9.4-12.4) 08/21/24 Neutrophils (%) (Auto) 61.0 % 08/20/24 Lymphocytes (%) (Auto) 29.3 % 08/20/24 Monocytes # (Auto) 0.66 K/uL (0.11-0.59) H 08/20/24 Eosinophils # (Auto) 0.18 K/uL (0.00-0.50) 08/20/24 Immature Granulocyte % (Auto) 0.4 % 08/20/24 Neutrophils # (Auto) 5.73 K/uL (1.40-6.50) 08/20/24 Lymphocytes # (Auto) 2.76 K/uL (1.20-3.40) 08/20/24 Monocytes # (Auto) 0.66 K/uL (0.11-0.59) H 08/20/24 Eosinophils # (Auto) 0.18 K/uL (0.00-0.50) 08/20/24 Basophils # (Auto) 0.04 K/uL (0.00-0.20) 08/20/24 Immature Granulocyte # (Auto) 0.04 K/uL (0.01-0.20) 4 Na 135 mmol/L (136-145) L 08/21/24 K 4.0 mmol/L (3.5-5.1) 08/21/24 Cl 107 mmol/L (98-107) 08/21/24 CO2 18 mmol/L (21-32) L 08/21/24 Anion Gap 10 (3-11) 08/21/24 BUN 11 mg/dl (6-23) 08/21/24 Creatinine 0.58 mg/dl (0.6-1.2) L 08/21/24 BUN/Creatinine Ratio 19.0 (10-20) 08/21/24 Glu 173 mg/dl (70-99(Fasting)) H 08/21/24 Ca 8.8 mg/dl (8.6-10.3) 08/21/24 Total Bilirubin 0.3 mg/dl (0.2-1.0) 08/20/24 AST 44 U/L (13-39) H 08/20/24 ALT 29 U/L (7-52) 08/20/24 Alkaline Phosphatase 79 U/L (34-104) 08/20/24 TP 7.5 gm/dl (6.0-8.3) 08/20/24 Albumin 4.3 gm/dl (3.4-5.0) 08/20/24 Globulin 3.2 gm/dl (2.5-4.0) 08/20/24 Albumin/Globulin Ratio 1.3 (0.9-2) 08/20/24 Mg 1.9 mg/dl (1.7-2.4) 08/20/24 20:58 Calcium Level 8.8 mg/dl (8.6-10.3) 08/21/24 05:28 Prothromb Time International Ratio 0.9 (0.9-1.1) 08/20/24 20:5 8 Diagnostic Findings (Past 24 Hours) Chest X-Ray 08/20/24 20:52 Exam(s): XR CXR 1 VIEW EXAM: XR Chest, 1 View CLINICAL HISTORY: Reason for exam: Chest pain, nonspecific. TECHNIQUE: Frontal view of the chest. COMPARISON: No relevant prior studies available. IMPRESSION: 1. No acute cardiopulmonary abnormality. Electronically signed by: Dominik Zamora MD 08/21/24 03:45 AM Chest CTA 08/20/24 21:54 CR Exam(s): CTA CHEST IV Amt: 117 cc opti 320 EXAM: CT Angiography Chest With Intravenous Contrast CLINICAL HISTORY: Reason for exam: PE. TECHNIQUE: Axial computed tomographic angiography images of the chest with intravenous contrast. CTDI is 27.22 mGy and DLP is 906.3 mGy-cm. Automated exposure control was utilized for the study. A dose lowering technique was utilized adhering to the principles of ALARA. MIP reconstructed images were created and reviewed. COMPARISON: CTA chest: 12/21/2015 FINDINGS: Pulmonary arteries: Demonstrates bilaterally abnormal intraluminal filling defects/acute pulmonary emboli involving upper/lower lobar and segmental arterial branches. There is evidence of RV dysfunction with abnormal RV/LV ratio. Aorta: No acute findings. No thoracic aortic aneurysm. Lungs: Central airways are patent. Mild bilateral bronchial wall thickening. No mass. No consolidation. Pleural space: Unremarkable. No significant effusion. No pneumothorax. Heart: Unremarkable. No cardiomegaly. No significant pericardial effusion. Bones/joints: No acute fracture. No dislocation. Soft tissues: Unremarkable. Lymph nodes: Unremarkable. No enlarged lymph nodes.. IMPRESSION: Bilateral acute pulmonary embolism with evidence of RV dysfunction. . Communications: Call Doctor Pulmonary Embolism Electronically signed by: Freedom Burnham MD, DABR 08/21/24 02:[address] 08/20/24 21:58 Exam(s): CT HEAD Without Contrast EXAM: CT Head Without Intravenous Contrast CLINICAL HISTORY: Reason for exam: HI. TECHNIQUE: Axial computed tomography images of the head/brain without intravenous contrast. CTDI is 36.05 mGy and DLP is 546.36 mGy-cm. Automated exposure control was utilized for the study. A dose lowering technique was utilized adhering to the principles of ALARA. COMPARISON: None. FINDINGS: Motion/beam hardening-induced image degradation limits anatomical details. Brain: Unremarkable. No hemorrhage. No significant white matter disease. No edema. Ventricles: Unremarkable. No ventriculomegaly. Bones/joints: Unremarkable. No acute fracture. Soft tissues: Unremarkable. Sinuses: Moderately severe bilateral ethmoid sinusitis. Left sphenoid sinusitis.. Mastoid air cells: Unremarkable as visualized. No mastoid effusion. IMPRESSION: No acute intracranial abnormality noted. Moderately severe bilateral ethmoid sinusitis. Mild/moderate left sphenoid sinusitis. . Electronically signed by: Freedom Burnham MD, DABR 08/20/24 23:06 PM Venous Doppler Study 08/20/24 22:47 EXAM: US venous doppler LE BI CLINICAL HISTORY: PEs. RLE: No definite DVT detected. Duplication of FV seen, both appear patent. LLE: Duplication of FV seen. Partially occlusive thrombus seen from the Dist FV extending to the prox POP V. Thrombus also detected in on of the sural veins in the calf extending from behind the knee to just before the mid calf. TECHNIQUE: Ultrasound examination of bilateral lower extremity veins was performed in real-time and duplex. One or more of the following were performed- spectral analysis, resistive index, waveform analysis, and pulsed Doppler. COMPARISON: None. FINDINGS: Partially occlusive thrombus is seen from the left distal femoral vein extending to the proximal popliteal vein. Thrombus was also detected in one of the sural veins in the calf extending from behind the knee to just before the mid-calf. Normal phasic, non-pulsatile, and spontaneous flow is noted in the right common femoral, superficial femoral, popliteal, and posterior tibial and peroneal veins. Visualized veins of the right lower extremity demonstrate normal compressibility. No sonographic evidence of acute deep vein thrombosis (DVT) is detected in the visualized veins of the right lower extremity. Duplication of bilateral femoral vein. Compression: Partial flow and partial compression were noted in the distal left superficial femoral, possible proximal popliteal, and sural veins of the left upper leg from knee to mid-calf. The rest of the left veins are normal. All right-sided evaluated veins compress fully with applied transducer pressure. IMPRESSION: 1. Left lower extremity venous findings are suggestive of a partially occlusive thrombus seen from the distal left superficial femoral veins extending to the proximal popliteal vein. Thrombus is also detected in one of the sural veins in the calf extending from behind the knee to just before the mid-calf. A close follow-up is suggested for further confirmation and evaluation, to exclude technical errors if any during this study. 2. No sonographic evidence of acute DVT was detected in the right common femoral, superficial femoral, popliteal posterior tibial, and peroneal veins, at the time of examination. Disclaimer: DVT could be missed early in the disease when the clot burden is minimal. For patients with moderate and high pretest probability of DVT and negative ultrasound, the [employer] clinical guidelines recommend testing with a D-dimer assay or repeat ultrasound in 5-7 days. If symptoms worsen, the Society of radiologists in ultrasound recommends repeating ultrasound even earlier. Electronically signed by Roberto Rizo 08-21-2024 03:48 AM I & O Totals 24 Hours 08/20/24 08/21/24 08/22/24 06:59 06:59 05:59 Intake Total 1582.083 / 1582.083 Balance 1582.083 / 1582.083 Cumulative 08/20/24 20:40 thru 08/21/24 06:58 Intake Total 1582.083 Balance 1582.083 RT Ventilator Mngmt (Last Documented) Ventilator Ordered Settings Respiratory Rate 20 08/21/24 11:02 Ventilator - PT Measurements Respiratory Rate 20 PG Care Time/CCT Total # of Minutes Spent Total Time Spent with Patient: Total time spent is greater than 50% in coordination of care (as documented) at patient's floor/unit and/or counseling patient: Coding Level of Care Code 21121 IN/OBS CONSULT LVL 4,60M Diagnoses Pulmonary embolism I26.99 Acute cor pulmonale presence: unspecified Chronicity: acute Pulmonary embolism type: unspecified Acute bronchitis due to Rhinovirus J20.6
[2024-08-21] MEDS: UMECLIDINIUM/VILANTEROL 62.5/25MCG 7 PUFFS/INHALER INH SCH (14:35)
--- NOTE | 2024-08-21 14:59 | Hospitalist Progress Note ---
<Statement entered by Akilah Romero MD - 08/21/24 18:27> I have reviewed vital signs, chart notes, labs and imaging. I have personally seen, evaluated and examined the patient. I have also discussed the management of the patient with the JANICE and I agree with the exam findings documented in the history and physical examination and the documented assessment and plan unless otherwise stated below. Kaci is definitely feeling better today though she continues to have dyspnea, she is having some element of COPD exacerbation with wheezing that is improved with steroids and bronchodilators. She is not having any chest pain she was on room air this morning and within normal blood pressure heart rate in the low 100s. She has tolerated being up to the bathroom, however with increased dyspnea. she has no personal or family history of VTE, risk factors include obesity and smoking. She did take a long car ride but that was a few weeks ago she was not clearly symptomatic of DVT although she had some calf cramps over the last few months it was mainly in the opposite calf. she has some mild bruising on her forehead from hitting her head. On my exam she has some increased work of breathing mild expiratory wheezing some coarse breath sounds mildly tachycardic around 100 no murmurs, no leg or calf swelling or tenderness I reviewed the echo with Dr. Mcgrath, unfortunately she does have evidence of acute cor pulmonale with right ventricular strain. Her high-sensitivity troponin is mildly elevated at 500, BNP was not checked. She has distal left femoral nonocclusive DVT extending to the popliteal, head CT was negative for acute intracranial hemorrhage sPESI score is 0 and Pasi score is 48 which is very low risk. Given the echo findings and positive biomarker she is intermediate to high risk PE. I discussed option to transfer to tertiary care center with capability for intra-arterial thrombolysis/thrombectomy and discussed the risks of thrombolysis, she is concerned especially because she did hit her head which is completely valid and would prefer to stay here and continue heparin drip if possible. I consulted Dr. Buckley who also spoke with her she voiced the same opinion. I think this is reasonable considering that she has improved over 24 hours with heparin and other than her echo findings she does not have high risk criteria, and there is additional risk of intracranial hemorrhage given that she did hit her head at the time of her syncopal episode. Were she to develop hemodynamic instability, recurrent syncope/presyncope etc. she should be considered for thrombolysis immediately She is being treated for mild COPD exacerbation and acute sinusitis with augmentin, bronchodilators, steroids with some improvement in this realm. Date of Service August 21, 2024 Assessment & Plan (1) Bilateral pulmonary embolism: Plan: Kaci is a 49 year old woman who was admitted to the hospital 08/20 with bilateral pulmonary embolisms and L lower extremity DVT. Started on Heparin upon admission. - Thrombolysis not started in the ER. Continue Heparin. - Pulm consulted - should the patient experience increased palpitations or syncopal episode, will consider salvage thrombolytics. Consider lifelong anticoagulation. - Protein C, Protein S, Antithrombin III, Factor IV Leiden labs pending. - EKG on admission = Sinus Tachycardia - Continue Heparin drip - BEATRIS - Mild LV hypertrophy, EF > 70%, RV pressure/vol. overload, mod/severe tricuspid regurg, RV systolic pressure 40-50 mmHg, acute cor pulmonale. - Dr. Romero discussed the possibility of transferring for intraarterial thro mbolysis vs. staying here and continuing on heparin - patient would like to stay here and continue with Heparin for now. - Pulm continue to follow (2) Lower extremity deep venous thrombosis: Plan: See #1 (3) Sinusitis, acute: Plan: - Continue Augmentin (4) COPD (chronic obstructive pulmonary disease): Plan: - Currently on Augmentin for sinuses, would cover COPD exac. as well. - Prednisone - Continue Anoro - Nebs as needed Admission and Anticipated Discharge Date Admission Date: August 20, 2024 Carlos Clemons is a 49 y/o woman who presented to the ER with acute worsening of SOB with associated syncopal episode and head trauma. In July she was tx with abx and given albuterol inhaler. Developed progressive shortness of breath over the past week. On 08/20, patient was in [employer] bathroom, suddenly felt her heart racing, had acute worsening of shortness of breath and had a brief syncopal episode. CT head with bilateral ethmoid sinusitis and left sphenoid sinusitis, EKG with sinus tachycardia, troponin 46->444->502->465, CTA demonstrated bilateral PEs, respiratory biofire +entero/rhinovirus, venous doppler showing LLE partially occlusive thrombus from the distal L superficial femoral veins extending to the proximal popliteal vein. Thrombus also detected in one of the sural veins in the calf extending from behind the knee to just before the mid-calf. In the ER, she received a dose of dexamethasone and nebulizer treatment, 1L IV fluids, and was started on heparin drip. Today, patient denies chest pain, fever/chills, N/V/D but endorses ongoing shortness of breath even at rest - reports that this is improved from yesterday. Denies h/o cardiac issues. Denies h/o prior DVT/PE. Most recent travel was 07/30, drove to [place] continuously without stopping - total of 6 hours in the car. + Smoker Review of Systems Constitutional: no fever and no chills Respiratory: + dyspnea, + dyspnea on exertion and + w heezing; no cough Cardiovascular: + dyspnea, + dyspnea on exertion and + c zander pain (R sided); no chest pain and no edema Gastrointestinal: no abdominal pain, no nausea and no vomiting Genitourinary: no dysuria and no difficulty urinating Psychiatric: no problem reported Physical Exam Constitutional: WD/WN, vitals as above Eyes: PERRL, conjunctivae normal, anicteric sclerae ENMT: Ears: no external ear abnormality Nose: no external nose abnormality Neck: normal visual inspection and trachea midline Respiratory: + labored breathing and + audible wheeze s (Expiratory wheezes throughout) Cardiovascular: Rate/Rhythm: regular rate and regular rhythm Extremities: + calf tenderness (Bilateral); no pedal edema and no edema Gastrointestinal (Abdomen): Inspection/Auscultation: normal bowel sounds Percussion/Palpation: abdomen soft; abdomen nontender Musculoskeletal: Extremities: extremities normal to inspection Skin: no rashes, warm and dry Psychiatric: A+Ox3, euthymic affect Results & Data Results & Data Vital Signs (Past 12 Hours) Vital Signs Temp Pulse Pulse Resp BP Pulse Ox O2 Del Method 08/21/24 11:02 36.8 C 93 H 20 145/94 H 97 Room Air 08/21/24 08:18 36.6 C 101 H 18 131/85 94 Room Air 08/21/24 08:10 Room Air 08/21/24 07:20 99 H 08/21/24 04:00 36.6 C 100 H 22 130/86 94 Room Air Laboratory Results 08/21/24 08/21/2408/21/24 Range/Units 08:35 05:28 02:51 WBC 6.34 (4.8-10.8) K/ul RBC 3.91 L (4.20-5.40) M/uL Hgb 12.7 (12.0-16.0) g/dl Hct 36.1 L (37.0-47.0) % MCV 92.3 (80.0-100.0) fL MCH 32.5 (25.0-34.0) pg MCHC 35.2 (32.0-36.0) g/dL RDW Std Deviation 39.8 (36.4-46.3) fL RDW Coeff of Shanti 11.8 (11.5-14.5) % Plt Count 176 (130-400) K/uL MPV 11.7 (9.4-12.4) fL Immature Gran % (Auto) % Neut % (Auto) % Lymph % (Auto) % [place] % (Auto) % Eos % (Auto) % Baso % (Auto) % Neut # (Auto) (1.40-6.50) K/uL Lymph # (Auto) (1.20-3.40) K/uL [place] # (Auto) (0.11-0.59) K/uL Eos # (Auto) (0.00-0.50) K/uL Baso # (Auto) (0.00-0.20) K/uL Immature Gran # (Auto) (0.01-0.20) K/uL PT (9.0-12.0) Seconds INR (0.9-1.1) APTT (21-31) Seconds PTT Ratio Protein C Activity Protein S Activity Antithrombin III Activ Heparin Anti-Xa, Unfract 0.47 (0.3-0.7) IU/ml Factor V Leiden Mutat Factor V Leiden Interp Sodium 135 L (136-145) mmol/L Potassium 4.0 (3.5-5.1) mmol/L Chloride 107 (98-107) mmol/L Carbon Dioxide 18 L (21-32) mmol/L Anion Gap 10 (3-11) BUN 11 (6-23) mg/dl Creatinine 0.58 L (0.6-1.2) mg/dl Est Cr Clr Drug Dosing 130.9 ml/min eGFR 111.56 BUN/Creatinine Ratio 19.0 (10-20) Glucose 173 H (70-99(Fasting)) mg/dl Calcium 8.8 (8.6-10.3) mg/dl Magnesium (1.7-2.4) mg/dl Total Bilirubin (0.2-1.0) mg/dl AST (13-39) U/L ALT (7-52) U/L Alkaline Phosphatase (34-104) U/L Troponin I High Sens 465.5 H* 502.0 H* (0-14) pg/ml Total Protein (6.0-8.3) gm/dl Albumin (3.4-5.0) gm/dl Globulin (2.5-4.0) gm/dl Albumin/Globulin Ratio (0.9-2) Homocysteine TSH (0.300-4.500) uIu/ml HCG, Qual (Negative) Adenovirus (PCR) (NotDetected) B. pertussis DNA (PCR) (NotDetected) B.parapertussis DNA PCR (NotDetected) C. pneumoniae DNA (PCR) (NotDetected) Coronavirus OC43 (PCR) (NotDetected) Coronavirus HKU1 (PCR) (NotDetected) Coronavirus 229E (PCR) (NotDetected) SARS-CoV-2 (PCR) (NotDetected) Coronavirus NL63 (PCR) (NotDetected) Human Metapneumovir PCR (NotDetected) Influenza Type A (PCR) (NotDetected) Influenza Type B (PCR) (NotDetected) M. pneumoniae (PCR) (NotDetected) Parainfluenza 1 (PCR) (NotDetected) Parainfluenza 2 (PCR) (NotDetected) Parainfluenza 3 (PCR) (NotDetected) Parainfluenza 4 (PCR) (NotDetected) RSV (PCR) (NotDetected) Entero/Rhino (PCR) (NotDetected) Prothrombin Gene Mutate Prothromb Gene Comment 08/20/24 08/20/24 08/20/24 Range/Units 23:34 22:38 20:58 WBC 9.41 (4.8-10.8) K/ul RBC 4.30 (4.20-5.40) M/uL Hgb 14.0 (12.0-16.0) g/dl Hct 40.7 (37.0-47.0) % MCV 94.7 (80.0-100.0) fL MCH 32.6 (25.0-34.0) pg MCHC 34.4 (32.0-36.0) g/dL RDW Std Deviation 41.9 (36.4-46.3) fL RDW Coeff of Shanti 12.0 (11.5-14.5) % Plt Count 202 (130-400) K/uL MPV 11.7 (9.4-12.4) fL Immature Gran % (Auto) 0.4 % Neut % (Auto) 61.0 % Lymph % (Auto) 29.3 % [place] % (Auto) 7.0 % Eos % (Auto) 1.9 % Baso % (Auto) 0.4 % Neut # (Auto) 5.73 (1.40-6.50) K/uL Lymph # (Auto) 2.76 (1.20-3.40) K/uL [place] # (Auto) 0.66 H (0.11-0.59) K/uL Eos # (Auto) 0.18 (0.00-0.50) K/uL Baso # (Auto) 0.04 (0.00-0.20) K/uL Immature Gran # (Auto) 0.04 (0.01-0.20) K/uL PT 9.8 (9.0-12.0) Seconds INR 0.9 (0.9-1.1) APTT 25 (21-31) Seconds PTT Ratio 0.9 Protein C Activity Pending Protein S Activity Pending Antithrombin III Activ Pending Heparin Anti-Xa, Unfract (0.3-0.7) IU/ml Factor V Leiden Mutat Pending Factor V Leiden Interp Pending Sodium 137 (136-145) mmol/L Potassium 3.5 (3.5-5.1) mmol/L Chloride 105 (98-107) mmol/L Carbon Dioxide 21 (21-32) mmol/L Anion Gap 11 (3-11) BUN 20 (6-23) mg/dl Creatinine 0.79 (0.6-1.2) mg/dl Est Cr Clr Drug Dosing 96.9 ml/min eGFR 92.21 BUN/Creatinine Ratio 25.3 H (10-20) Glucose 153 H (70-99(Fasting)) mg/dl Calcium 9.2 (8.6-10.3) mg/dl Magnesium 1.9 (1.7-2.4) mg/dl Total Bilirubin 0.3 (0.2-1.0) mg/dl AST 44 H (13-39) U/L ALT 29 (7-52) U/L Alkaline Phosphatase 79 (34-104) U/L Troponin I High Sens 443.9 H* D 46.6 H (0-14) pg/ml Total Protein 7.5 (6.0-8.3) gm/dl Albumin 4.3 (3.4-5.0) gm/dl Globulin 3.2 (2.5-4.0) gm/dl Albumin/Globulin Ratio 1.3 (0.9-2) Homocysteine Pending TSH 3.774 (0.300-4.500) uIu/ml HCG, Qual (Negative) Adenovirus (PCR) Not Detected (NotDetected) B. pertussis DNA (PCR) Not Detected (NotDetected) B.parapertussis DNA PCR Not Detected (NotDetected) C. pneumoniae DNA (PCR) Not Detected (NotDetected) Coronavirus OC43 (PCR) Not Detected (NotDetected) Coronavirus HKU1 (PCR) Not Detected (NotDetected) Coronavirus 229E (PCR) Not Detected (NotDetected) SARS-CoV-2 (PCR) Not Detected (NotDetected) Coronavirus NL63 (PCR) Not Detected (NotDetected) Human Metapneumovir PCR Not Detected (NotDetected) Influenza Type A (PCR) Not Detected (NotDetected) Influenza Type B (PCR) Not Detected (NotDetected) M. pneumoniae (PCR) Not Detected (NotDetected) Parainfluenza 1 (PCR) Not Detected (NotDetected) Parainfluenza 2 (PCR) Not Detected (NotDetected) Parainfluenza 3 (PCR) Not Detected (NotDetected) Parainfluenza 4 (PCR) Not Detected (NotDetected) RSV (PCR) Not Detected (NotDetected) Entero/Rhino (PCR) DETECTED A (NotDetected) Prothrombin Gene Mutate Pending Prothromb Gene Comment Pending 08/20/24 Range/Units 20:50 WBC (4.8-10.8) K/ul RBC (4.20-5.40) M/uL Hgb (12.0-16.0) g/dl Hct (37.0-47.0) % MCV (80.0-100.0) fL MCH (25.0-34.0) pg MCHC (32.0-36.0) g/dL RDW Std Deviation (36.4-46.3) fL RDW Coeff of Shanti (11.5-14.5) % Plt Count (130-400) K/uL MPV (9.4-12.4) fL Immature Gran % (Auto) % Neut % (Auto) % Lymph % (Auto) % [place] % (Auto) % Eos % (Auto) % Baso % (Auto) % Neut # (Auto) (1.40-6.50) K/uL Lymph # (Auto) (1.20-3.40) K/uL [place] # (Auto) (0.11-0.59) K/uL Eos # (Auto) (0.00-0.50) K/uL Baso # (Auto) (0.00-0.20) K/uL Immature Gran # (Auto) (0.01-0.20) K/uL PT (9.0-12.0) Seconds INR (0.9-1.1) APTT (21-31) Seconds PTT Ratio Protein C Activity Protein S Activity Antithrombin III Activ Heparin Anti-Xa, Unfract (0.3-0.7) IU/ml Factor V Leiden Mutat Factor V Leiden Interp Sodium (136-145) mmol/L Potassium (3.5-5.1) mmol/L Chloride (98-107) mmol/L Carbon Dioxide (21-32) mmol/L Anion Gap (3-11) BUN (6-23) mg/dl Creatinine (0.6-1.2) mg/dl Est Cr Clr Drug Dosing ml/min eGFR BUN/Creatinine Ratio (10-20) Glucose (70-99(Fasting)) mg/dl Calcium (8.6-10.3) mg/dl Magnesium (1.7-2.4) mg/dl Total Bilirubin (0.2-1.0) mg/dl AST (13-39) U/L ALT (7-52) U/L Alkaline Phosphatase (34-104) U/L Troponin I High Sens (0-14) pg/ml Total Protein (6.0-8.3) gm/dl Albumin (3.4-5.0) gm/dl Globulin (2.5-4.0) gm/dl Albumin/Globulin Ratio (0.9-2) Homocysteine TSH (0.300-4.500) uIu/ml HCG, Qual Negative (Negative) Adenovirus (PCR) (NotDetected) B. pertussis DNA (PCR) (NotDetected) B.parapertussis DNA PCR (NotDetected) C. pneumoniae DNA (PCR) (NotDetected) Coronavirus OC43 (PCR) (NotDetected) Coronavirus HKU1 (PCR) (NotDetected) Coronavirus 229E (PCR) (NotDetected) SARS-CoV-2 (PCR) (NotDetected) Coronavirus NL63 (PCR) (NotDetected) Human Metapneumovir PCR (NotDetected) Influenza Type A (PCR) (NotDetected) Influenza Type B (PCR) (NotDetected) M. pneumoniae (PCR) (NotDetected) Parainfluenza 1 (PCR) (NotDetected) Parainfluenza 2 (PCR) (NotDetected) Parainfluenza 3 (PCR) (NotDetected) Parainfluenza 4 (PCR) (NotDetected) RSV (PCR) (NotDetected) Entero/Rhino (PCR) (NotDetected) Prothrombin Gene Mutate Prothromb Gene Comment PG Care Time/CCT Total # of Minutes Spent Total Time Spent with Patient: Total time spent is greater than 50% in coordination of care (as documented) at patient's floor/unit and/or counseling patient: [place] [address] SUB INP/OBS CARE 2/35MIN Patient Type Established History Expanded Problem Focused Exam Expanded Problem Focused Medical Decision Making Moderate Complexity Diagnoses Bilateral pulmonary embolism I26.99 Lower extremity deep venous thrombosis I82.409 Sinusitis, acute J01.90 COPD (chronic obstructive pulmonary disease) J44.9
--- NOTE | 2024-08-21 19:28 | Electrocardiogram Report ---
Test Reason : Blood Pressure : */* mmHG Vent. Rate : 109 BPM Atrial Rate : 109 BPM P-R Int : 154 ms QRS Dur : 82 ms QT Int : 336 ms P-R-T Axes : 64 66 72 degrees QTcB Int : 452 ms Sinus tachycardia Nonspecific ST abnormality RSR' or QR pattern in V1 suggests right ventricular conduction delay Rightward axis Abnormal ECG When compared with ECG of 20-Dec-2015 22:10, Vent. rate has increased by 39 bpm Non-specific change in ST segment in Inferior leads Confirmed by Ada Mcgrath ([id number]) on 08/21/2024 7:28:32 PM Referred By: Confirmed By: Ada Mcgrath
--- NOTE | 2024-08-21 19:31 | Electrocardiogram Report ---
Test Reason : Blood Pressure : */* mmHG Vent. Rate : 106 BPM Atrial Rate : 106 BPM P-R Int : 164 ms QRS Dur : 84 ms QT Int : 350 ms P-R-T Axes : 61 67 59 degrees QTcB Int : 464 ms Sinus tachycardia Left atrial enlargement RSR' or QR pattern in V1 suggests right ventricular conduction delay Rightward axis Abnormal ECG When compared with ECG of 20-Aug-2024 20:54, (unconfirmed) No significant change was found Confirmed by Ada Mcgrath ([id number]) on 08/21/2024 7:31:13 PM Referred By: REFERRED SELF Confirmed By: Ada Mcgrath
--- NOTE | 2024-08-22 00:20 | Billing Data ---
Date of Service August 22, 2024 Coding Level of Care Code 91041 INT INP/OBS CARE
[2024-08-22 05:30] LABS: BUN Creatinine Ratio 22.2 (10-20); Creatinine Clr Calc Pharmacy 105.6 ml/min; Potassium 3.9 mmol/L (3.5-5.1)
--- NOTE | 2024-08-22 09:25 | Pulmonology Progress Note ---
Date of Service August 22, 2024 Assessment & Plan (1) Pulmonary embolism: Acute cor pulmonale presence: unspecified Chronicity: acute P ulmonary embolism type: unspecified Qualified Code(s): I26.99 - Other pulmonary embolism without acute cor pulmonale (2) Acute bronchitis due to Rhinovirus: Plan Impression: 49-year-old female with history of tobacco abuse admitted with acute PE presenting with syncopal event. She has elevated cardiac enzymes and an echocardiogram demonstrating RV strain. She is clinically improved today on heparin and declined thrombolysis with associated bleeding risk Recommendations: 1. Acute PE: Certainly would have considered thrombolysis on presentation given syncopal event and elevated biomarkers however the patient is now almost 48 hours out from her event. She appears to be clinically responding to IV heparin. Given her elevated biomarkers and syncopal presentation would continue with heparin additional 24 hours at which point time she can be transitioned to a DOAC. Again would recommend likely lifelong anticoagulation given unprovoked event and severity of PE. Would recommend follow-up echocardiogram in 3 months. 2. Hypoxemia: Wean oxygen as tolerated. 3. Age-appropriate cancer screening as outpatient recommended. 4. COPD: Continue Anoro. Can continue to use nebulized therapies as needed. She is on antibiotics for sinus infection which should cover acute exacerbation of COPD. Smoking cessation recommended. Outpatient PFTs should be obtained. 5. The above recommendations and plan were discussed with the patient. Will continue to follow with you. Feel free to contact us with questions or concerns Admission and Anticipated Discharge Date Admission Date: August 20, 2024 Subjective Patient seen and examined. EMR reviewed. The patient is sitting up in a chair tolerating breakfast. She feels her dyspnea is better. She has not had any recurrent syncope or presyncope. She does feel slightly winded with ambulation however this is shown significant improvement compared to yesterday. Her cough is less productive. Her sinus complaints are improved as well. She denies any fevers chills night sweats or other constitutional symptoms. Review of Systems 2 Review of Systems: All systems reviewed & are unremarkable except as noted in Subjective Physical Exam 2 Constitutional: WD/WN, vitals as above Neck: trachea midline, no thyromegaly Respiratory: normal respiratory effort, lungs clear to auscultation Cardiovascular: RRR, no murmur, no edema Gastrointestinal (Abdomen): normal bowel sounds, soft, nontender, no hepatosplenomegaly Musculoskeletal: Extremities: extremities normal to inspection Skin: no rashes, warm and dry Lymphatic: no cervical lymphadenopathy Results & Data Results & Data Vital Signs (Past 12 Hours) Vital Signs Temp Pulse Pulse Resp BP Pulse Ox O2 Del Method 08/22/24 07:14 75 08/22/24 03:00 36.6 C 80 20 122/78 96 Nasal Cannula 08/21/24 23:00 88 08/21/24 22:50 36.6 C 72 20 129/90 97 Nasal Cannula O2 Flow Rate 08/22/24 07:14 08/22/24 03:00 2.5 08/21/24 23:00 08/21/24 22:50 2.5 Laboratory Results 08/21/24 05:28 08/22/24 04:33 Diagnostic Findings No new imaging PG Care Time/CCT Total # of Minutes Spent Total Time Spent with Patient: Total time spent is greater than 50% in coordination of care (as documented) at patient's floor/unit and/or counseling patient: Coding Level of Care Code 40001 SUB INP/OBS CARE 2/35MIN Diagnoses Pulmonary embolism I26.99 Acute cor pulmonale presence: unspecified Chronicity: acute Pulmonary embolism type: unspecified Acute bronchitis due to Rhinovirus J20.6
--- NOTE | 2024-08-22 14:45 | Hospitalist Progress Note ---
<Statement entered by Akilha Romero MD - 08/22/24 15:30> I have reviewed vital signs, chart notes, labs and imaging. I have personally seen, evaluated and examined the patient. I have also discussed the management of the patient with the JNAICE and I agree with the exam findings documented in the history and physical examination and the documented assessment and plan unless otherwise stated below. Aamir appears less dyspneic but does have a lot of expiratory wheezing. She has no leg or body wall edema so I think this is probably bronchospasm rather than heart failure. She is on oxygen today but sats are 97% I think this is been put on more for comfort rather than new worsening hypoxia Date of Service August 22, 2024 Assessment & Plan (1) Pulmonary embolism: Plan: Kaci is a 49 year old woman who was admitted to the hospital 08/20 with bilateral pulmonary embolisms and L lower extremity DVT. Started on Heparin upon admission. - Thrombolysis not started in the ER. Continue Heparin. - Pulm consulted - should the patient experience increased palpitations or syncopal episode, will consider salvage thrombolytics. Consider lifelong anticoagulation. - Protein C, Protein S, Antithrombin III, Factor IV Leiden labs pending. - EKG on admission = Sinus Tachycardia. HR improved - Continue Heparin drip - BEATRIS - Mild LV hypertrophy, EF > 70%, RV pressure/vol. overload, mod/severe tricuspid regurg, RV systolic pressure 40-50 mmHg, acute cor pulmonale. - 08/22 - Dr. Romero discussed the possibility of transferring for intraarterial thrombolysis vs. staying here and continuing on heparin - patient would like to stay here and continue with Heparin for now. - Pulm continue to follow - Dr. Buckley recommends lifelong anticoagulation [facility] recommends follow up echo in 3 months. - Discussed trying to wean off of oxygen, even if it is just at rest. She is saturating well on 2.5L. Discussed with her nurse as well. (2) Lower extremity deep venous thrombosis: Plan: See #1 (3) COPD (chronic obstructive pulmonary disease): Plan: - Augmentin for sinusitis, will cover COPD exaccerbation as well - Prednisone - Anoro - Nebs as needed - Pulm following - outpatient PFTs - Smoking cessation (4) Sinusitis, acute: Plan: - Continue Augmentin Plan Dispo: admit to PCU-tele FEN/GI: regular diet VTE ppx: Heparin Full code Admission and Anticipated Discharge Date Admission Date: August 20, 2024 Carlos Pearson is laying in bed comfortably. She is wearing her nasal cannula. She feels her dyspnea is better yet today - she was able to get up and wash herself up in the bathroom. She continues to have dyspnea with ambulation however this is shown significant improvement compared to yesterday. Her cough is productive. She denies fevers, chills, chest pain, abdominal pain, nausea, vomiting, diarrhea or constipation. She does have dyspnea with speaking, but improved from yesterday. Review of Systems Constitutional: no fever and no chills Respiratory: + dyspnea, + dyspnea on exertion and + w heezing; no cough Cardiovascular: + dyspnea, + dyspnea on exertion and + c jail pain (R sided); no chest pain and no edema Gastrointestinal: no abdominal pain, no nausea and no vomiting Genitourinary: no dysuria and no difficulty urinating Psychiatric: no problem reported Physical Exam Constitutional: WD/WN, vitals as above Eyes: PERRL, conjunctivae normal, anicteric sclerae ENMT: Ears: no external ear abnormality Nose: no external nose abnormality Neck: normal visual inspection and trachea midline Respiratory: + labored breathing (with long sentences ) and + cough Cardiovascular: Rate/Rhythm: regular rate and regular rhythm Extremities: + calf tenderness (Bilateral); no pedal edema and no edema Gastrointestinal (Abdomen): Inspection/Auscultation: normal bowel sounds Percussion/Palpation: abdomen soft; abdomen nontender Musculoskeletal: Extremities: extremities normal to inspection Skin: no rashes, warm and dry Psychiatric: A+Ox3, euthymic affect Results & Data Results & Data Vital Signs (Past 12 Hours) Vital Signs Temp Pulse Pulse Resp BP Pulse Ox O2 Del Method 08/22/24 14:19 99 H 08/22/24 11:43 37.2 C 73 17 132/86 96 Nasal Cannula 08/22/24 09:19 75 08/22/24 09:19 Nasal Cannula 08/22/24 07:14 75 08/22/24 03:00 36.6 C 80 20 122/78 96 Nasal Cannula O2 Flow Rate 08/22/24 14:19 08/22/24 11:43 2.5 08/22/24 09:19 08/22/24 09:19 2.5 08/22/24 07:14 08/22/24 03:00 2.5 Laboratory Results 08/22/24 Range/Units 04:33 Heparin Anti-Xa, Unfract 0.30 (0.3-0.7) IU/ml Sodium 137 (136-145) mmol/L Potassium 3.9 (3.5-5.1) mmol/L Chloride 104 (98-107) mmol/L Carbon Dioxide 24 (21-32) mmol/L Anion Gap 9 (3-11) BUN 16 (6-23) mg/dl Creatinine 0.72 (0.6-1.2) mg/dl Est Cr Clr Drug Dosing 105.6 ml/min eGFR 103.07 BUN/Creatinine Ratio 22.2 H (10-20) Glucose 115 H (70-99(Fasting)) mg/dl Calcium 9.0 (8.6-10.3) mg/dl PG Care Time/CCT Total # of Minutes Spent Total Time Spent with Patient: Total time spent is greater than 50% in coordination of care (as documented) at patient's floor/unit and/or counseling patient: C[place] [address] SUB INP/OBS CARE 2/35MIN Patient Type Established History Expanded Problem Focused Exam Expanded Problem Focused Medical Decision Making Moderate Complexity Diagnoses Pulmonary embolism I26.99 Acute cor pulmonale presence: unspecified Chronicity: acute Pulmonary embolism type: unspecified Lower extremity deep venous thrombosis I82.409 COPD (chronic obstructive pulmonary disease) J44.9 Sinusitis, acute J01.90 (1) Pulmonary embolism Acute cor pulmonale presence: unspecified Chronicity: acute Pulmonary embolism type: unspecified Qualified Code(s): I26.99 - Other pulmonary embolism without acute cor pulmonale
[2024-08-22] MEDS: ACETAMINOPHEN 325 MG TAB PO PRN (19:40)
[2024-08-22] MEDS: ALBUT/IPRATROP 3MG/0.5MG NEB 3 ML VIAL NEB SCH (19:46)
[2024-08-23 05:39] LABS: ANTI-Xa, UFH(UnfractionatedHep 0.24 IU/ml (0.3-0.7)
--- NOTE | 2024-08-23 08:30 | Pulmonology Progress Note ---
Date of Service August 23, 2024 Assessment & Plan (1) Pulmonary embolism: Acute cor pulmonale presence: unspecified Chronicity: acute P ulmonary embolism type: unspecified Qualified Code(s): I26.99 - Other pulmonary embolism without acute cor pulmonale (2) Acute bronchitis due to Rhinovirus: Plan Impression - 49-year-old female with history of tobacco abuse admitted with acute PE presenting with syncopal event. She has elevated cardiac enzymes and an echocardiogram demonstrating RV strain. She is clinically improved today on heparin and declined thrombolysis with associated bleeding risk Plan - -- Acute PE: Certainly would have considered thrombolysis on presentation given syncopal event and elevated biomarkers however the patient is now almost 72 hours out from her event. Patient has been on heparin drip for 72 hours at this point. She appears to be stable at this time. Plan would be for transition to DOAC therapy moving forward. Favor lifelong anticoagulation in the setting of unprovoked PE with significant burden. Given echo findings of elevated RIGHT-sided pressures, would recommend follow-up echocardiogram in 3 months time. -- Hypoxemia: On room air at this time. -- Age-appropriate cancer screening as outpatient recommended. -- COPD: Patient carries significant smoking history up to the time of admission. On Anoro at this point, but with ongoing breakthrough bronchospasm. Will change her to nebulized budesonide and performance. Will change her to Incruse as well. She may benefit from a few days of parenteral steroids as well. Likely in the setting of viral infection. Would discharge to home on Anoro (or something similar) given her likely underlying diagnosis of COPD. Would recommend outpatient pulmonary follow-up with formal pulmonary function testing moving forward. This can be performed 6 to 8 weeks after discharge, particular patient with recent diagnosis of pulmonary emboli. Thank you for allowing us to precipitate in the care of this pleasant patient. Pulmonary medicine will continue to follow along. Admission and Anticipated Discharge Date Admission Date: August 20, 2024 Supervising Physician Co-Signing Physician Notes I saw and evaluated the patient with Alireza Eller PA-C, and agree with findings and plan as documented in the note. Social history: [id number] smoking history, currently smoking a pack a day Lung cancer: Strong history of lung cancer in uncle as well as grandmother who were smokers Strong family history of colon cancer in mother as well as grandfather Patient seen and examined at bedside. Case was discussed with outgoing heel top lift splitter She was not in any respiratory distress She was saturating 98% on 2 L nasal cannula, I went down to 1 L She was little bit anxious. States that she is feeling better compared to when she came to the hospital but she still gets short of breath on minimal exertion Constitutional: No acute distress HEENT: EOMI, PERRLA Respiratory system: Decreased air entry bilaterally, no rhonchi, mild crackles bilateral lower lobes, minimal expiratory wheeze CVS: S1-S2 positive, no murmurs or gallops Abdomen: Soft, nontender, nondistended, positive bowel sounds x4, obese Extremities: +2 pulses bilaterally radialis/ dorsalis pedis, no cyanosis, no edema Neuro: Awake alert oriented x3 Psych: Normal mood and affect G/U: No Snyder Plan: Patient had pulmonary emboli with intermediate high risk. Given the elevated troponin as well as right heart strain. Repeat 2D echo in 3 months She has been on heparin drip for almost 48 hours. I think it is reasonable to change it to DOACs It is difficult to say whether it was provoked or unprovoked. She did have approximately [address] with few stops to get food. Would recommend anticoagulation for at least 3-6 months and then low-dose anticoagulation following that unless there is contraindication Patient was wheezing earlier today, prednisone changed to Solu-Medrol. She will benefit from Spiriva or Incruse on discharge Please note the above document was generated using voice recognition software. It may contain grammatical, syntax or spelling errors.Any formal questions or concerns about the content, text or information contained within the body of this dictation should be directly addressed to the provider for clarification. Subjective Patient seen and evaluated this morning. She remains wheezy and short of breath. She states that she feels better than she did Friday, but still has moderately persistent dyspnea. She is describing pleuritic discomfort as well. No hemoptysis. Review of Systems 2 Review of Systems: Please refer to admission H&P. No additions or deletions Physical Exam 2 Physical Exam: VITAL SIGNS Vital signs and nursing notes were reviewed. GENERAL 49-year-old female appearing her stated age who is in no acute distress. Communicates well with provider and answers questions appropriately. SKIN Without rashes or lesions. NOSE Midline and without cyanosis. MOUTH/OROPHARYNX Without perioral cyanosis. NECK Neck with FROM. LUNGS Chest wall evaluation demonstrates normal chest wall A:P diameter. Auscultation reveals diffuse wheezes throughout all lung orta. CARDIAC RRR with S1/S2. No murmur, rubs, or gallops appreciated. EXTREMITIES Nail clubbing not present. No peripheral cyanosis. No pretibial edema present. +3/5 radial palpated throughout. PSYCH A&Ox3 and cooperates fully with examiner. Pt is very pleasant and interacts well with examiner. Results & Data Results & Data Vital Signs (Past 12 Hours) Vital Signs Temp Pulse Pulse Resp BP Pulse Ox O2 Del Method 08/23/24 07:40 59 L 08/23/24 07:38 36.4 C L 77 18 126/82 95 Room Air 08/23/24 07:19 91 H 17 99 Nasal Cannula 08/23/24 03:50 36.6 C 75 18 124/78 96 Nasal Cannula 08/22/24 23:00 71 08/22/24 22:34 36.6 C 63 18 125/81 96 Nasal Cannula 08/22/24 21:58 Nasal Cannula O2 Flow Rate 08/23/24 07:40 08/23/24 07:38 08/23/24 07:19 3 08/23/24 03:50 2.5 08/22/24 23:00 08/22/24 22:34 2.5 08/22/24 21:58 Laboratory Results 08/21/24 05:28 08/22/24 04:33 PG Care Time/CCT Total # of Minutes Spent Total Time Spent with Patient: Total time spent is greater than 50% in coordination of care (as documented) at patient's floor/unit and/or counseling patient: Coding Level of Care Code 10647 SUB INP/OBS CARE 3/50MIN Diagnoses Pulmonary embolism I26.99 Acute cor pulmonale presence: unspecified Chronicity: acute Pulmonary embolism type: unspecified Acute bronchitis due to Rhinovirus J20.6
[2024-08-23] MEDS ORDERED: methylPREDNISolone 125 MG/2 ML VIAL IV SCH (09:15)
[2024-08-23] MEDS: FORMOTEROL 20 MCG/2 ML VIAL NEB SCH (10:08)
[2024-08-23] MEDS: UMECLIDINIUM BROMIDE 62.5MCG/BLISTER 7 PUFFS/INHALER INH SCH (12:04)
[2024-08-23] MEDS: methylPREDNISolone 40 MG in SYRINGE 0 ML IV SCH (12:13)
[2024-08-23 12:34] LABS: ANTI-Xa, UFH(UnfractionatedHep 0.22 IU/ml (0.3-0.7)
--- NOTE | 2024-08-23 17:32 | Hospitalist Progress Note ---
Date of Service August 23, 2024 Assessment & Plan (1) Acute pulmonary embolism with acute cor pulmonale: Plan: 49-year-old woman with history of smoking and obesity but no personal or history family of VTE presented with syncope and dyspnea found to have bilateral acute pulmonary emboli. she was admitted and started on heparin drip I evaluated her the following morning and consulted cyber defense incident responder. intermediatehigh risk PE. we did discuss option of thrombolytics with her including transfer for attempted intra-arterial thrombolysis and she wished to avoid doing that was concerned about the risk of hemorrhage, especially because she had hit her head when she fell. She has improved in the last 48 hours on heparin drip. The picture is complicated by the fact she is in an acute COPD exacerbation triggered by rhinovirus and is very bronchospastic. Bilateral PE, left distal femoral vein partially occlusive DVT, elevated troponin, right heart strain on TTE - continue heparin drip and reasonable to change to DOAC at this time we are inquiring about her insurance coverage for apixaban versus rivaroxaban - she is asymptomatic from the DVT - likely to need lifelong anticoagulation - hypercoagulable workup was sent on admission and is pending - repeat TTE in 3 months (2) COPD (chronic obstructive pulmonary disease): Plan: COPD and acute exacerbation due to rhinovirus infection, ongoing smoking however intends to quit from this hospitalization going forward remains extremely bronchospastic, steroids changed to IV today per pulmonary, control inhalers added, continue scheduled and as needed DuoNebs - counseled/ encouraged smoking cessation (3) Lower extremity deep venous thrombosis: (4) Acute bronchitis due to Rhinovirus: (5) Sinusitis, acute: Plan: treating with Augmentin also on steroids, improving Plan fallhead CT was negative for intracranial hemorrhage DVT prophylaxison heparin drip currently follow-up with pulmonary as outpatient Admission and Anticipated Discharge Date Admission Date: August 20, 2024 Subjective Aamir generally doing better but remains really wheezy and bronchospastic, no chest pain except some soreness with coughing no leg swelling, anterior shins feel sore bilaterally today Physical Exam 2 Physical Exam: PHYSICAL EXAMINATION Last 24h vital signs reviewed, see documentation in flowsheet General: comfortable appearing, no distress HEENT: Normocephalic, atraumatic, pupils round and equal, sclerae anicteric, no conjunctival injection, moist mucus membranes Lungs: mildly increased work of breathing, expiratory wheezing throughout bilaterally anterior and posterior Heart: Regular rate and rhythm, no murmurs. No JVD Abdomen: Soft, nontender, nondistended. Bowel sounds present. Extremities: Warm, dry, well-perfused. No extremity edema. no calf or leg swelling or tenderness Neuro: Alert and oriented x 4, face symmetric, moves 4 extremities well Psych: Normal affect and behavior Results & Data Results & Data Vital Signs (Past 12 Hours) Vital Signs Temp Pulse Pulse Resp BP Pulse Ox O2 Del Method 08/23/24 16:04 36.9 C 80 17 111/74 97 Nasal Cannula 08/23/24 14:17 76 08/23/24 11:35 36.7 C 87 18 112/71 96 Nasal Cannula 08/23/24 10:10 90 16 98 Nasal Cannula 08/23/24 09:50 Nasal Cannula 08/23/24 07:40 59 L 08/23/24 07:38 36.4 C L 77 18 126/82 95 Room Air 08/23/24 07:19 91 H 17 99 Nasal Cannula O2 Flow Rate 08/23/24 16:04 1.5 08/23/24 14:17 08/23/24 11:35 08/23/24 10:10 2 08/23/24 09:50 2 08/23/24 07:40 08/23/24 07:38 08/23/24 07:19 3 Laboratory Results 08/21/24 05:28 08/22/24 04:33 PG Care Time/CCT Total # of Minutes Spent Total Time Spent with Patient: Total time spent is greater than 50% in coordination of care (as documented) at patient's floor/unit and/or counseling patient: Coding Level of Care Code 20220 SUB INP/OBS CARE 2/35MIN Diagnoses Acute pulmonary embolism with acute cor pulmonale I26.09 COPD (chronic obstructive pulmonary disease) J44.9 Lower extremity deep venous thrombosis I82.409 Acute bronchitis due to Rhinovirus J20.6 Sinusitis, acute J01.90
[2024-08-23 19:47] LABS: ANTI-Xa, UFH(UnfractionatedHep 0.27 IU/ml (0.3-0.7)
[2024-08-23] MEDS: BUDESONIDE 0.5 MG/2 ML VIAL (PULMICORT) INH SCH (19:56)
[2024-08-24 03:08] LABS: Hematocrit (blood only) 37.9 % (37.0-47.0); Hemoglobin 13.4 g/dl (12.0-16.0); Mean Corpuscular Hemoglobin 32.4 pg (25.0-34.0); Mean Corpuscular Hgb Conc 35.4 g/dL (32.0-36.0); Mean Corpuscular Volume 91.8 fL (80.0-100.0); Mean Platelet Volume 11.6 fL (9.4-12.4); Platelet Count 193 K/uL (130-400); RDW Coefficient of Variation 11.8 % (11.5-14.5); RDW Standard Deviation 39.7 fL (36.4-46.3); Red Blood Count 4.13 M/uL (4.20-5.40); White Blood Count 11.66 K/ul (4.8-10.8)
[2024-08-24 03:10] LABS: Calcium 9.9 mg/dl (8.6-10.3); Creatinine Clr Calc Pharmacy 105.8 ml/min; Potassium 4.6 mmol/L (3.5-5.1)
[2024-08-24 03:16] LABS: ANTI-Xa, UFH(UnfractionatedHep 0.39 IU/ml (0.3-0.7)
--- NOTE | 2024-08-24 08:48 | Pulmonology Progress Note ---
Date of Service August 24, 2024 Assessment & Plan (1) Pulmonary embolism: Acute cor pulmonale presence: unspecified Chronicity: acute Pulmonary embolism type: unspecified Qualified Code(s): I26.99 - Other pulmonary embolism without acute cor pulmonale (2) Acute bronchitis due to Rhinovirus: Plan Impression - 49-year-old female with history of tobacco abuse admitted with acute PE presenting with syncopal event. She has elevated cardiac enzymes and an echocardiogram demonstrating RV strain. She is clinically improved today on heparin and declined thrombolysis with associated bleeding risk Plan - -- Acute PE: Certainly would have considered thrombolysis on presentation given syncopal reji nt and elevated biomarkers however the patient is now almost 72 hours out from her event. Patient has been on heparin drip for 72 hours at this point. She appears to be stable at this time. Plan would be for transition to DOAC therapy moving forward. Favor lifelong anticoagulation. Given echo findings of elevated RIGHT-sided pressures, would recommend follow-up echocardiogram in 3 months time. -- Hypoxemia: On room air at this time. -- Age-appropriate cancer screening as outpatient recommended. -- COPD: Patient carries significant smoking history up to the time of admission. On Anoro at this point, but with ongoing breakthrough bronchospasm. Will change her to nebulized budesonide and performance. Will change her to Incruse as well. Likely in the setting of viral infection. Would discharge to home on Anoro (or similar class drug) given her likely underlying diagnosis of COPD. Would recommend outpatient pulmonary follow-up with formal pulmonary function testing moving forward. This can be performed 6 to 8 weeks after discharge, particular patient with recent diagnosis of pulmonary emboli. Patient is sounding much better today and less bronchospastic. She will receive her second intravenous Solu-Medrol dose this evening and then can transition to p.o. tomorrow. Would recommend prednisone taper in the outpatient setting. Can transition to LAMA/LAMA from nebulized therapies for discharge as well. As long as she is transitioned to DOAC therapy and doing well, like for see discharge in the next 24 to 48 hours. Thank you for allowing us to precipitate in the care of this pleasant patient. Pulmonary medicine will continue to follow along. Admission and Anticipated Discharge Date Admission Date: August 20, 2024 Supervising Physician Co-Signing Physician Notes I saw and evaluated the patient with Alireza Eller PA-C, and agree with findings and plan as documented in the note. Social history: [id number] smoking history, currently smoking a pack a day Lung cancer: Strong history of lung cancer in uncle as well as grandmother who were smokers Strong family history of colon cancer in mother as well as grandfather Patient seen and examined at bedside. No acute distress, no adverse events overnight She was saturating 97% on room air with heart rate in the high 80s. Overall she stated she is feeling better compared to before Complaining of cough and difficulty bringing it up. Denies any hemoptysis No headache or blurry vision No chest pain Fair appetite Constitutional: No acute distress HEENT: EOMI, PERRLA Respiratory system: Decreased air entry bilaterally, no rhonchi, mild crackles bilateral lower lobes, no wheezing CVS: S1-S2 positive, no murmurs or gallops Abdomen: Soft, nontender, nondistended, positive bowel sounds x4, obese Extremities: +2 pulses bilaterally radialis/ dorsalis pedis, no cyanosis, no edema Neuro: Awake alert oriented x3 Psych: Normal mood and affect G/U: No Snyder Plan: Patient had pulmonary emboli with intermediate high risk. Given the elevated troponin as well as right heart strain. Repeat 2D echo in 3 months I think it is reasonable to change it to DOACs It is difficult to say whether it was provoked or unprovoked. She did have approximately [address] with only few stops. Would recommend anticoagulation for at least 3-6 months and then low-dose anticoagulation following that unless there is contraindication Please note the above document was generated using voice recognition software. It may contain grammatical, syntax or spelling errors.Any formal questions or concerns about the content, text or information contained within the body of this dictation should be directly addressed to the provider for clarification. Subjective Patient was seen and evaluated bedside. She is feeling much better today and is much less dyspneic. She reports much less wheezing. She still has a cough, but overall feels greatly improved. Review of Systems Review of Systems: Please refer to admission H&P. No additions or deletions Physical Exam Physical Exam: VITAL SIGNS Vital signs and nursing notes were reviewed. GENERAL 49-year-old female appearing her stated age who is in no acute distress. Communicates well with provider and answers questions appropriately. SKIN Without rashes or lesions. NOSE Midline and without cyanosis. MOUTH/OROPHARYNX Without perioral cyanosis. NECK Neck with FROM. LUNGS Chest wall evaluation demonstrates normal chest wall A:P diameter. Auscultation reveals clear breath sounds with mild rhonchi at the bases. No wheezes. CARDIAC RRR with S1/S2. No murmur, rubs, or gallops appreciated. EXTREMITIES Nail clubbing not present. No peripheral cyanosis. No pretibial edema present. +3/5 radial palpated throughout. PSYCH A&Ox3 and cooperates fully with examiner. Pt is very pleasant and interacts well with examiner. Results & Data Results & Data Vital Signs (Past 12 Hours) Vital Signs Temp Pulse Pulse Resp BP Pulse Ox O2 Del Method 08/24/24 08:46 36.6 C 93 H 18 119/75 93 Room Air 08/24/24 07:33 84 16 95 Room Air 08/24/24 07:27 69 08/24/24 02:59 36.6 C 73 18 126/79 96 Room Air 08/23/24 23:28 36.6 C 79 18 122/82 93 Room Air 08/23/24 21:44 66 08/23/24 21:00 Nasal Cannula O2 Flow Rate 08/24/24 08:46 08/24/24 07:33 08/24/24 07:27 08/24/24 02:59 08/23/24 23:28 08/23/24 21:44 08/23/24 21:00 1 PG Care Time/CCT Total # of Minutes Spent Total Time Spent with Patient: Total time spent is greater than 50% in coordination of care (as documented) at patient's floor/unit and/or counseling patient: Coding Level of Care Code 04617 SUB INP/OBS CARE 2/35MIN Diagnoses Pulmonary embolism I26.99 Acute cor pulmonale presence: unspecified Chronicity: acute Pulmonary embolism type: unspecified Acute bronchitis due to Rhinovirus J20.6
[2024-08-24 14:58] LABS: ANTI-Xa, UFH(UnfractionatedHep 0.37 IU/ml (0.3-0.7)
--- NOTE | 2024-08-24 18:58 | Hospitalist Progress Note ---
Date of Service August 24, 2024 Assessment & Plan (1) Acute pulmonary embolism with acute cor pulmonale: Plan: risk factors - recurrent illness, recent car travel, potentially other unidentified factors radiographically and by way of echo she had acute right-sided heart strain/cor pulmonale from her submassive PEs currently on heparin infusion transition to PO Eliquis tomorrow am remains hemodynamically stable 2-step before discharge likely to need lifelong anticoagulation hypercoagulable workup was sent on admission and is pending although homocysteine level returned high (see below) repeat echo in 3 months appreciate pulm assistance cost of Eliquis - zero dollar copay (2) COPD (chronic obstructive pulmonary disease): Plan: with exacerbation 2nd rhinovirus infection with sinusitis as well cont steroids, nebs, abx (for sinusitis), pulmonary toilet, etc appreciate pulm consult / recs (3) Lower extremity deep venous thrombosis: Plan: LLE - superficial femoral veins, proximal popliteal veins, and 1 of the sural veins cont heparin drip transition to PO Eliquis 10mg tomorrow am (4) Acute bronchitis due to Rhinovirus: Plan: cont solumedrol reduce to 30mg BID can likely transition to po prednisone soon will check O2 sats with walking today (5) Sinusitis, acute: Plan: cont Augmentin day #4 of 7 (6) 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 this is a risk factor for DVT as well as arterial thrombosis will check folic acid/b12 levels in am regardless should treat this with folate/B6/B12 will senior genetic counselor patient Plan pre-admission fall head CT negative for intracranial hemorrhage fortunately no injuries from the fall hopefully can d/c home tomorrow Admission and Anticipated Discharge Date Admission Date: August 20, 2024 Subjective tele stable overnight patient reports dyspnea on exertion mild cough, no real sputum eating well does report 2 long car rides this year - January and then again in June (latter was to [place] & back in 1 day) no recent surgery no recent COVID infection (had a respiratory illness in June, COVID neg x 3 at that time) asks general questions about anticoagulation, etc. Review of Systems Review of Systems: gen - no fevers or chills CV - no chest pain but does have occasional chest tightness pulm - some wheezing Physical Exam Physical Exam: gen - NAD, occasional cough neck - no JVD mouth - MMM heart - RRR, s1 s2, no murmur lungs - no wheeze, no increased work of breathing, no rales abd - soft NT ND BS+ ext - trace edema b/l, pulses 2+ b/l Results & Data Results & Data Vital Signs (Past 12 Hours) Vital Signs Temp Pulse Pulse Resp BP Pulse Ox O2 Del Method 08/24/24 17:42 37.0 C 86 16 125/83 95 Room Air 08/24/24 14:05 85 08/24/24 10:54 36.7 C 86 18 117/71 93 Room Air 08/24/24 10:12 Room Air 08/24/24 08:46 36.6 C 93 H 18 119/75 93 Room Air 08/24/24 07:33 84 16 95 Room Air 08/24/24 07:27 69 Laboratory Results Laboratory Results - last 48 hr 08/20/24 08/23/24 08/23/24 23:34 11:49 19:03 WBC RBC Hgb Hct MCV MCH MCHC RDW Std Deviation RDW Coeff of Shanti Plt Count MPV Heparin Anti-Xa, Unfract 0.22 L 0.27 L Sodium Potassium Chloride Carbon Dioxide Anion Gap BUN Creatinine Est Cr Clr Drug Dosing eGFR BUN/Creatinine Ratio Glucose Estimat Average Glucose Hemoglobin A1c Calcium Vitamin B12 Folate Homocysteine 14.3 H 08/24/24 08/24/24 01:44 14:10 WBC 11.66 H RBC 4.13 L Hgb 13.4 Hct 37.9 MCV 91.8 MCH 32.4 MCHC 35.4 RDW Std Deviation 39.7 RDW Coeff of Shanti 11.8 Plt Count 193 MPV 11.6 Heparin Anti-Xa, Unfract 0.39 0.37 Sodium 133 L Potassium 4.6 Chloride 100 Carbon Dioxide 23 Anion Gap 10 BUN 18 Creatinine 0.72 Est Cr Clr Drug Dosing 105.8 eGFR 103.07 BUN/Creatinine Ratio 25.0 H Glucose 169 H Estimat Average Glucose Hemoglobin A1c Calcium 9.9 Vitamin B12 Folate Homocysteine PG Care Time/CCT Total # of Minutes Spent Total Time Spent with Patient: Total time spent is greater than 50% in coordination of care (as documented) at patient's floor/unit and/or counseling patient: Coding Level of Care Code 44148 SUB INP/OBS CARE 2/35MIN Diagnoses Acute pulmonary embolism with acute cor pulmonale I26.09 COPD (chronic obstructive pulmonary disease) J44.9 Lower extremity deep venous thrombosis I82.409 Acute bronchitis due to Rhinovirus J20.6 Sinusitis, acute J01.90 Homocysteinemia R79.83
[2024-08-24] MEDS: guaiFENesin 600 MG TABCR PO SCH (19:54)
[2024-08-25 07:11] LABS: BUN Creatinine Ratio 30.1 (10-20); Calcium 9.9 mg/dl (8.6-10.3); Creatinine Clr Calc Pharmacy 104.3 ml/min; Potassium 4.7 mmol/L (3.5-5.1)
[2024-08-25 07:27] LABS: Estimated Average Glucose 100 mg/dl; Hemoglobin A1C 5.1 % (4.5-5.6)
[2024-08-25 07:37] LABS: Folate (Folic Acid),Ser orPlas 7.91 ng/ml (>5.38)
--- NOTE | 2024-08-25 08:08 | Pulmonology Progress Note ---
Date of Service August 25, 2024 Assessment & Plan (1) Pulmonary embolism: Acute cor pulmonale presence: unspecified Chronicity: acute Pulmonary embolism type: unspecified Qualified Code(s): I26.99 - Other pulmonary embolism without acute cor pulmonale (2) Acute bronchitis due to Rhinovirus: Plan Impression - 49-year-old female with history of tobacco abuse admitted with acute PE presenting with syncopal event. She has elevated cardiac enzymes and an echocardiogram demonstrating RV strain. She is clinically improved today on heparin and declined thrombolysis with associated bleeding risk Plan - -- Acute PE: Certainly would have considered thrombolysis on presentation given syncopal reji nt and elevated biomarkers however the patient is now almost 72 hours out from her event. Patient has been on heparin drip for 72 hours at this point. She appears to be stable at this time. Continue with DOAC therapy moving forward. Favor lifelong anticoagulation. Given echo findings of elevated RIGHT-sided pressures, would recommend follow-up echocardiogram in 3 months time. -- Hypoxemia: On room air at this time. -- Age-appropriate cancer screening as outpatient recommended. -- COPD: Patient carries significant smoking history up to the time of admission. On Anoro at this point, but with ongoing breakthrough bronchospasm. Will change her to nebulized budesonide and performance. Will change her to Incruse as well. Likely in the setting of viral infection. Would discharge to home on Anoro (or similar class drug) given her likely underlying diagnosis of COPD. Would recommend outpatient pulmonary follow-up with formal pulmonary function testing moving forward. This can be performed 6 to 8 weeks after discharge, particular patient with recent diagnosis of pulmonary emboli. She can be seen in the clinic in 6 to 8 weeks with pulmonary function testing which can be ordered by our office prior to that appointment. Would not order them sooner secondary to PE. Additionally, does not need to be seen in the clinic until the 6 to 8-week period with those studies. We can then follow-up with echocardiogram in 3 months from today's visit given the strain noted on initial echocardiogram. Otherwise, from pulmonary perspective, the patient is stabilized. Will defer discharge decision making to primary service. Admission and Anticipated Discharge Date Admission Date: August 20, 2024 Supervising Physician Co-Signing Physician Notes I saw and evaluated the patient with Alireza Eller PA-C, and agree with findings and plan as documented in the note. Social history: 14-elas-jnvg smoking history, currently smoking a pack a day Lung cancer: Strong history of lung cancer in uncle as well as grandmother who were smokers Strong family history of colon cancer in mother as well as grandfather Patient seen and examined at bedside. No acute distress, no adverse events overnight She was saturating 97% on room air with heart rate in the high 80s. Overall she stated she is feeling better compared to before Complaining of cough and difficulty bringing it up. Denies any hemoptysis No headache or blurry vision No chest pain Fair appetite Constitutional: No acute distress HEENT: EOMI, PERRLA Respiratory system: Decreased air entry bilaterally, no rhonchi, mild crackles bilateral lower lobes, no wheezing CVS: S1-S2 positive, no murmurs or gallops Abdomen: Soft, nontender, nondistended, positive bowel sounds x4, obese Extremities: +2 pulses bilaterally radialis/ dorsalis pedis, no cyanosis, no edema Neuro: Awake alert oriented x3 Psych: Normal mood and affect G/U: No Snyder Plan: Patient had pulmonary emboli with intermediate high risk. Given the elevated troponin as well as right heart strain. Repeat 2D echo in 3 months Continue with DOAC's for at least 3-6 months and then it will be reasonable to go down to lower dose maintenance following that unless there is contraindication It is difficult to say whether it was provoked or unprovoked. She did have approximately [address] with only few stops. Taper prednisone off in the next 5 days Anoro or Stiolto inhaler on discharge Outpatient pulmonary follow-up No further recommendation from pulmonary perspective, will sign off Please call directly with any questions Please note the above document was generated using voice recognition software. It may contain grammatical, syntax or spelling errors.Any formal questions or concerns about the content, text or information contained within the body of this dictation should be directly addressed to the provider for clarification. Subjective Patient seen and evaluated at bedside. She reports feeling much better today. She has been ambulating the halls without oxygen. She is much less short of breath at this time. Her wheezing is improved. Review of Systems Review of Systems: Please refer to admission H&P. No additions or deletions Physical Exam Physical Exam: VITAL SIGNS Vital signs and nursing notes were reviewed. GENERAL 49-year-old female appearing her stated age who is in no acute distress. Communicates well with provider and answers questions appropriately. SKIN Without rashes or lesions. NOSE Midline and without cyanosis. MOUTH/OROPHARYNX Without perioral cyanosis. NECK Neck with FROM. LUNGS Chest wall evaluation demonstrates normal chest wall A:P diameter. Auscultation reveals clear breath sounds with mild rhonchi at the bases. No wheezes. CARDIAC RRR with S1/S2. No murmur, rubs, or gallops appreciated. EXTREMITIES Nail clubbing not present. No peripheral cyanosis. No pretibial edema present. +3/5 radial palpated throughout. PSYCH A&Ox3 and cooperates fully with examiner. Pt is very pleasant and interacts well with examiner. Results & Data Results & Data Vital Signs (Past 12 Hours) Vital Signs Temp Pulse Pulse Resp BP BP Pulse Ox 08/25/24 07:44 36.8 C 77 18 114/69 93 08/25/24 07:03 75 16 96 08/25/24 04:46 36.5 C 75 18 110/73 92 08/25/24 00:05 08/25/24 00:04 67 08/24/24 22:41 36.7 C 75 18 141/87 H 95 08/24/24 22:29 08/24/24 20:12 80 18 98 Pulse Ox O2 Del Method O2 Del Method 08/25/24 07:44 Room Air 08/25/24 07:03 Room Air 08/25/24 04:46 Room Air 08/25/24 00:05 95 Room Air 08/25/24 00:04 08/24/24 22:41 Room Air 08/24/24 22:29 Room Air 08/24/24 20:12 Room Air PG Care Time/CCT Total # of Minutes Spent Total Time Spent with Patient: Total time spent is greater than 50% in coordination of care (as documented) at patient's floor/unit and/or counseling patient: Coding Level of Care Code 93340 SUB INP/OBS CARE 2/35MIN Diagnoses Pulmonary embolism I26.99 Acute cor pulmonale presence: unspecified Chronicity: acute Pulmonary embolism type: unspecified Acute bronchitis due to Rhinovirus J20.6
[2024-08-25] MEDS: APIXABAN 5 MG TABLET PO SCH (09:12)
[2024-08-25] MEDS: methylPREDNISolone 30 MG in SYRINGE 0 ML IV SCH (09:13)
--- NOTE | 2024-08-25 11:36 | Hospitalist Progress Note ---
Date of Service August 25, 2024 Assessment & Plan (1) Acute pulmonary embolism with acute cor pulmonale: Plan: risk factors - recurrent illness, recent car travel, potentially other unidentified factors radiographically and by way of echo she had acute right-sided heart strain/cor pulmonale from her submassive PEs stop heparin infusion this am; transition to Eliquis 10mg BID x 7 days, then 5mg BID thereafter remains hemodynamically stable passed 2-step ambulatory O2 test today --> no O2 needed for home likely to need lifelong anticoagulation hypercoagulable workup was sent on admission and is pending although homocysteine level returned high (see below) repeat echo in 3 months appreciate pulm assistance - will need f/u with them in the clinic cost of Eliquis - $0 copay (2) COPD (chronic obstructive pulmonary disease): Plan: with exacerbation 2nd rhinovirus infection with sinusitis as well cont steroids, nebs, abx (for sinusitis), pulmonary toilet, etc can stop IV steroids and change to PO prednisone today appreciate pulm consult / recs (3) Lower extremity deep venous thrombosis: Plan: LLE - superficial femoral veins, proximal popliteal veins, and 1 of the sural veins stop heparin drip transition to PO Eliquis 10mg this am as in #1 above (4) Acute bronchitis due to Rhinovirus: Plan: stop IV solumedrol, change to po prednisone today overall improved passed 2-step ambulatory o2 test this am (5) Sinusitis, acute: Plan: cont Augmentin day #5 of 7 (6) 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 this is a risk factor for DVT as well as arterial thrombosis folic acid/b12 levels are normal, but low-normal regardless should treat this with folate/B6/B12 ordered all 3 this am counseled patient on the significance of elevated homocysteine levels (7) Anxiety: Plan: start buspar 5mg TID gave support and reassurance this am during rounds (8) Type 2 NM (myocardial infarction): Plan: 2nd to #1 peak troponin just over 500 this was NOT an ACS Plan pre-admission fall head CT negative for intracranial hemorrhage fortunately no injuries from the fall can d/c home tomorrow care d/w pulmonary, Alireza LAIRD Admission and Anticipated Discharge Date Admission Date: August 20, 2024 Subjective no events overnight NSR on telemetry; no tachycardia patient reports feeling anxious about returning home in fact during the visit today she became very tearful about what she has gone through over the last few days she worries she will get home and pass away we discussed all of this in detail, I gave support, and I gave reassurances she continues with mild dyspnea on exertion but she passed her 2-step ambulatory O2 test without difficulty mild chest tightness at times only; no pain eating well no bleeding issues Review of Systems Review of Systems: pulm - mild cough; minimal to no sputum cv - no orthopnea; minimal edema GI - no abd pain or N/V Physical Exam Physical Exam: gen - NAD, tearful today, anxious neck - no JVD mouth - MMM heart - RRR, s1 s2, no murmur lungs - minimal b/l end-exp wheeze, no rales, no increased work of breathing abd - soft NT ND BS+ ext - trace (worse on left) edema b/l, pulses 2+ b/l Results & Data Results & Data Vital Signs (Past 12 Hours) Vital Signs Temp Pulse Pulse Pulse Pulse Resp Resp 08/25/24 11:29 36.6 C 68 18 08/25/24 10:42 95 H 80 22 08/25/24 07:44 36.8 C 77 18 08/25/24 07:03 75 16 08/25/24 04:46 36.5 C 75 18 08/25/24 00:05 08/25/24 00:04 67 Resp BP BP Pulse Ox Pulse Ox Pulse Ox Pulse Ox 08/25/24 11:29 155/77 H 95 08/25/24 10:42 16 97 97 08/25/24 07:44 114/69 93 08/25/24 07:03 96 08/25/24 04:46 110/73 92 08/25/24 00:05 95 08/25/24 00:04 O2 Del Method O2 Del Method 08/25/24 11:29 Room Air 08/25/24 10:42 08/25/24 07:44 Room Air 08/25/24 07:03 Room Air 08/25/24 04:46 Room Air 08/25/24 00:05 Room Air 08/25/24 00:04 Laboratory Results Laboratory Results - last 24 hr 08/25/24 06:36 Sodium 135 L Potassium 4.7 Chloride 100 Carbon Dioxide 24 Anion Gap 11 BUN 22 Creatinine 0.73 Est Cr Clr Drug Dosing 104.3 eGFR 101.38 BUN/Creatinine Ratio 30.1 H Glucose 122 H Estimat Average Glucose 100 Hemoglobin A1c 5.1 Calcium 9.9 Vitamin B12 372 Folate 7.91 PG Care Time/CCT Total # of Minutes Spent Total Time Spent with Patient: Total time spent is greater than 50% in coordination of care (as documented) at patient's floor/unit and/or counseling patient: Coding Level of Care Code 08470 SUB INP/OBS CARE 2/35MIN Diagnoses Acute pulmonary embolism with acute cor pulmonale I26.09 COPD (chronic obstructive pulmonary disease) J44.9 Lower extremity deep venous thrombosis I82.409 Acute bronchitis due to Rhinovirus J20.6 Sinusitis, acute J01.90 Homocysteinemia R79.83 Anxiety F41.9 Type 2 NM (myocardial infarction) I21.A1
[2024-08-25] MEDS: busPIRone 5 MG TAB PO SCH (12:49)
[2024-08-25] MEDS: FOLIC ACID 400 MCG TAB PO SCH (12:50)
[2024-08-25] MEDS: CYANOCOBALAMIN (B-12) 500 MCG TABLET PO SCH (12:50)
[2024-08-25] MEDS: PYRIDOXINE HCL 50 MG TAB PO SCH (12:50)
[2024-08-26 07:04] VITALS: O2SAT 96
[2024-08-26 07:46] VITALS: RESP 18; TEMP 97.7
--- NOTE | 2024-08-26 10:24 | Discharge Summary ---
Discharge Summary Date of Service August 26, 2024 Principal Dx & Hospital Course #1 = Principal Diagnosis (1) Acute pulmonary embolism with acute cor pulmonale: risk factors - recurrent illness, recent car travel, potentially other unidentified factors radiographically and by way of echo she had acute right-sided heart strain/cor pulmonale from her submassive PEs stop heparin infusion this am; transition to Eliquis 10mg BID x 7 days, then 5mg BID thereafter remains hemodynamically stable passed 2-step ambulatory O2 test today --> no O2 needed for home likely to need lifelong anticoagulation hypercoagulable workup was sent on admission and is pending although homocysteine level returned high (see below) repeat echo in 3 months appreciate pulm assistance - will need f/u with them in the clinic cost of Eliquis - $0 copay (2) COPD (chronic obstructive pulmonary disease): with exacerbation 2nd rhinovirus infection with sinusitis as well cont steroids, nebs, abx (for sinusitis), pulmonary toilet, etc can stop IV steroids and change to PO prednisone today appreciate pulm consult / recs (3) Lower extremity deep venous thrombosis: LLE - superficial femoral veins, proximal popliteal veins, and 1 of the sural veins stop heparin drip transition to PO Eliquis 10mg this am as in #1 above (4) Acute bronchitis due to Rhinovirus: stop IV solumedrol, change to po prednisone today overall improved passed 2-step ambulatory o2 test this am (5) Sinusitis, acute: cont Augmentin day #5 of 7 (6) 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 this is a risk factor for DVT as well as arterial thrombosis folic acid/b12 levels are normal, but low-normal regardless should treat this with folate/B6/B12 ordered all 3 this am counseled patient on the significance of elevated homocysteine levels (7) Anxiety: start buspar 5mg TID gave support and reassurance this am during rounds (8) Type 2 KS (myocardial infarction): 2nd to #1 peak troponin just over 500 this was NOT an ACS Plan pre-admission fall head CT negative for intracranial hemorrhage fortunately no injuries from the fall can d/c home tomorrow care d/w pulmonary, Alireza LAIRD Admission HPI Per Admitting Provider 49 year old female, current everyday smoker, presenting after acute worsening of SOB with associated syncopal episode and head trauma. Patient states that she had acute bronchitis at the beginning of July, was treated with abx and given an albuterol inhaler. Again became sick with sinus congestion, cough about 1 week ago with progression of shortness of breath over the week. Today, patient was in [employer] bathroom, suddenly felt her heart racing, had acute worsening of shortness of breath and had a brief syncopal episode. Pt admits to poor PO fluid intake over the past couple days. Denies formal RAD diagnosis but had been using her albuterol this week, total of 8 puffs daily, with some relief. At present, patient denies chest pain, fever/chills, N/V/D but endorses ongoing shortness of breath, minimal change after receiving nebulizer treatment. Denies h/o cardiac issues. Denies h/o prior DVT/PE. Most recent travel was 07/30, drove to [place] continuously without stopping - total of 6 hours in the car. ED Course: CT head with bilateral ethmoid sinusitis and left sphenoid sinusitis, EKG with sinus tachycardia, troponin 46->444, CTA demonstrates bilateral PEs, respiratory biofire +entero/rhinovirus Patient received dose of dexamethasone and nebulizer treatment, 1L IV fluids, started on heparin drip. Discharge Exam gen - NAD, tearful today, anxious neck - no JVD mouth - MMM heart - RRR, s1 s2, no murmur lungs - minimal b/l end-exp wheeze, no rales, no increased work of breathing abd - soft NT ND BS+ ext - trace (worse on left) edema b/l, pulses 2+ b/l Discharge Plan Discharge Items Patient Disposition: Home - Self-Care Reason For Visit: SYNCOPAL EPISODE Discharge Diagnosis: 1. syncope (passing out spell) - due to pulmonary emboli blood clots 2. pulmonary emboli 3. left leg deep venous thrombosis (DVTs) 4. suspected underlying COPD with exacerbation 5. rhinovirus infection 6. mildly elevated homocysteine levels (level = 14.3, normal < 10.4) Activity: As commented below Activity Comment: light activities only at this time Lifting Comment: nothing more than 15-20 pounds Sexual Activity: Wait until after follow-up appointment Exercise/Sports: Wait until after follow-up appointment Driving/Machine Use: Resume 1 day after discharge Non-emergency contact: Primary Care Provider and Utility Operator Call non-emergency contact if: you have any medication questions and your symptoms worsen Follow-up/Referrals: Mona Mcclure MD, FCCP [Physician] - 09/30/24 9:45 am (Hospital follow up scheduled with [facility] on September 30 at 9:45) Suzi Gonzalez MD [Primary Care Provider] - (Left voicemail for pcp office to call Pt to schedule hospital follow up within 1 week. ) PCP,NO [Physician] - Diet: Regular Addtl Attending Provider Instructions: Ms Lepe, You were hospitalized after having had a passing out spell, also known as syncope. Your episode was due to having blood clots of the lungs, also known as "pulmonary emboli." Pulmonary emboli blood clots come from another location in the body - typically the legs. Blood clots in the legs are called "DVTs." You do have residual DVT in the left leg. Once the blood clots reach the lungs they cannot travel any where else. The body will naturally try to dissolve the clots over the next few weeks/months. The body tries to do the same thing with the clots in the leg. In addition to the above you tested positive for a common virus called "rhinovirus." This is one of the most typical causes of the common cold. However, it can cause bronchitis and flare-ups of COPD. There is no specific antidote for rhinovirus- it resolves on its own. You were seen by [facility]. They recommended outpatient follow-up with them in the pulmonary clinic in about 6 weeks. You will need something called "pulmonary function tests" which can diagnose asthmatic & COPD conditions. You will also need a repeat echocardiogram of your heart as an outpatient. Finally, your homocysteine level was mildly high. This substance can increase the risk of blood clots and hardening of the arteries (atherosclerosis). The homocysteine level can go down with eating more fruits/veggies and taking certain vitamin supplements (see below). Recommendations - 1. Eliquis - this is your blood thinner. Take as follows - * 08/26/24 - night-time - take (2) 5mg tablets for a total of 10mg * 08/27/24 to 08/31/24 - take a total of 10mg every morning and 10mg every evening * 09/01/24 and thereafter - take 5mg every morning and 5mg every evening Thus, for the next 5 days, you will be on 10mg twice daily and then ultimately the dose will decrease down to 5mg twice daily thereafter. * please avoid use of hkjt-ram-xwooycb anti-inflammatory pills (motrin, naprosyn, aleve, etc) since you are now taking Eliquis * it is OK to take gihd-hwm-yifqzmy tylenol for aches & pains * please avoid alcohol while on Eliquis 2. For bronchitis/suspected COPD - * prednisone taper - start on 08/27/24, take with food * Anoro Ellipta inhaler - 1 puff once daily every day; you can start this tomorrow morning * albuterol via spacer device - 2 puffs every 4 hours as needed for cough/wheezing/shortness of breath * for the next 1-2 weeks you may want to use the albuterol 3-4 times a day as you recover from your illness 3. For sinus infection - * amoxicillin-clavulanate antibiotic - 1 tablet twice daily x 2 days, first dose tonight with your evening meal 4. For cough/congestion - * dduo-gjn-httixwj mucinex up to 1200mg twice daily as needed 5. For high homocysteine level - * "Strive for 5" - eat 5 servings of fruit and 5 servings of vegetables every day * take pydp-rva-mgawrkc vitamin B12 1000mcg (1mg) daily for at least 6 months * take prescription folic acid 400mcg daily for 30 days * take vitamin B6 50mg daily for 30 days * have your homocysteine level repeat in 2-3 months by your family doctor As we discussed you will likely have some mild shortness of breath with doing activity for a few weeks. You will simply need to take it easy and listen to your body during your recovery. If you feel short of breath simply stop & rest. We checked a walking oxygen test on 08/25/24 and you do not need oxygen for your house. Follow-up - * see your family doctor within 1 week * see [facility] in 6-8 weeks Return to [facility] if - * you have heavy bleeding from any location as noted below * you feel dizzy, lightheaded or have another episode of passing out * you have severe shortness of breath * you have chest pains * any other concerns It was our pleasure to care for you! -Dr Faye Meza Bell Cleaner Provider Instructions: Anticoagulant (Blood Thinner) Medication Instructions: Your DVT and pulmonary emboli blood clot condition is typically treated with an anticoagulant. Anticoagulants will thin your blood to help prevent new clots. Your blood thinner is ELIQUIS. * You should take your medication exactly as directed. * Never skip a dose. * Never take a double dose. If you miss a dose, take it as soon as you remember. Call your Primary Care doctor if you experience any of the following: * Swelling or Pain in your leg * Sudden, continuous pain deep in a muscle * Pain that worsens when you are active or when you stand still for a long time * Chest Pain * Sudden Shortness of Breath * Rapid or pounding heart beat * Fainting * Dizziness * Cough with blood or bloody sputum * Sweating more than normal * Bruises * Heavy or uncontrolled bleeding * Blood in your urine, stool or vomit * Black or tarry stools * Heavy nose bleeding Caring for Your Self at Home: * Avoid sitting, standing or lying down for long periods without moving your legs and feet * When traveling by car, stop to get out and move around at least once every 3 hours * On long airplane, train or bus rides, get up and move around when possible * If you can't get up, wiggle your toes and tighten your calves to keep your blood moving * When shaving please use an electric shaver rather than a traditional straight razor Pending Studies at Discharge: Yes Studies:: genetic causes of blood clots Stand-Alone Forms: [facility], Work/School Release, Smoking Cessation Medications and DC Order Prescriptions: New Eliquis 5 mg tablet 5 mg PO BID Qty: 60 5RF folic acid 400 mcg Tablet 400 mcg PO QAM 30 Days Qty: 30 0RF pyridoxine (vitamin B6) [Vitamin B-6] 50 mg Tablet 50 mg PO QAM 30 Days Qty: 30 0RF amoxicillin-pot clavulanate 875-125 mg Tablet 1 tab PO BIDM 2 Days Qty: 4 0RF cyanocobalamin (vitamin B-12) 1,000 mcg tablet 1,000 mcg PO DAILY Qty: 90 1RF Rx Instructions: purchase cajs-faa-jawauzp albuterol sulfate 90 mcg/actuation HFA aerosol inhaler 2 inh inhalation Q4H PRN (Reason: shortness of breath or wheezing or cough) Qty: 6.7 0RF Rx Instructions: use with spacer device Anoro Ellipta 62.5-25 mcg/actuation blister with device 1 inh inhalation DAILY Qty: 60 5RF prednisone 10 mg tablet 10 mg PO DIRECTED Qty: 19 0RF Rx Instructions: start 08/27/24, take with food. 4 tabs PO day #1; 3 tabs PO QD x 3 days; 2 tabs PO QD x 2 days; 1 tab PO QD x 2 days. Discharge Orders: Discharge Order (Routine); Ordered 08/26/24 Ordered By: Mert Potter/Other Patient Handouts: Homocysteine, Apixaban Oral Tablet, Understanding Deep Vein Thrombosis, Pulmonary Embolism, Using an Inhaler with a Spacer Admission Data Admit Date/Time: 08/20/24 23:36 Attending Provider: Mert Mckinney Admit Provider: Damián Gilbert Primary Care Provider: Suzi Gonzalez Other Providers: Juan Luis Villavicencio Gregory Hospital Stay Data Consultations 08/20/24 22:56 ED Decision to Admit Stat 08/21/24 12:12 Consult Pulmonology Routine Diagnostic Imagining Performed 08/20/24 21:54 CT angio chest PE protocol Stat 08/20/24 21:58 CT head/brain wo con Stat 08/20/24 22:47 US venous doppler LE BI Stat Pending Results Patient Have Any Pending Studies at Discharge: Yes Discharge Instructions Given to Patient (Per Discharging Provider) Ms Lepe, Eamon were hospitalized after having had a passing out spell, also known as syncope. Your episode was due to having blood clots of the lungs, also known as "pulmonary emboli." Pulmonary emboli blood clots come from another location in the body - typically the legs. Blood clots in the legs are called "DVTs." You do have residual DVT in the left leg. Once the blood clots reach the lungs they cannot travel any where else. The body will naturally try to dissolve the clots over the next few weeks/months. The body tries to do the same thing with the clots in the leg. In addition to the above you tested positive for a common virus called "rhinovirus." This is one of the most typical causes of the common cold. However, it can cause bronchitis and flare-ups of COPD. There is no specific antidote for rhinovirus- it resolves on its own. You were seen by [facility]. They recommended outpatient follow-up with them in the pulmonary clinic in about 6 weeks. You will need something called "pulmonary function tests" which can diagnose asthmatic & COPD conditions. You will also need a repeat echocardiogram of your heart as an outpatient. Finally, your homocysteine level was mildly high. This substance can increase the risk of blood clots and hardening of the arteries (atherosclerosis). The homocysteine level can go down with eating more fruits/veggies and taking certain vitamin supplements (see below). Recommendations - 1. Eliquis - this is your blood thinner. Take as follows - * 08/26/24 - night-time - take (2) 5mg tablets for a total of 10mg * 08/27/24 to 08/31/24 - take a total of 10mg every morning and 10mg every evening * 09/01/24 and thereafter - take 5mg every morning and 5mg every evening Thus, for the next 5 days, you will be on 10mg twice daily and then ultimately the dose will decrease down to 5mg twice daily thereafter. * please avoid use of tefs-psz-qfcejws anti-inflammatory pills (motrin, naprosyn, aleve, etc) since you are now taking Eliquis * it is OK to take qxgv-tgy-hasbzqz tylenol for aches & pains * please avoid alcohol while on Eliquis 2. For bronchitis/suspected COPD - * prednisone taper - start on 08/27/24, take with food * Anoro Ellipta inhaler - 1 puff once daily every day; you can start this tomorrow morning * albuterol via spacer device - 2 puffs every 4 hours as needed for cough/wheezing/shortness of breath * for the next 1-2 weeks you may want to use the albuterol 3-4 times a day as you recover from your illness 3. For sinus infection - * amoxicillin-clavulanate antibiotic - 1 tablet twice daily x 2 days, first dose tonight with your evening meal 4. For cough/congestion - * qkmd-vpi-fewqobi mucinex up to 1200mg twice daily as needed 5. For high homocysteine level - * "Strive for 5" - eat 5 servings of fruit and 5 servings of vegetables every day * take savh-gzf-lhkamrx vitamin B12 1000mcg (1mg) daily for at least 6 months * take prescription folic acid 400mcg daily for 30 days * take vitamin B6 50mg daily for 30 days * have your homocysteine level repeat in 2-3 months by your family doctor As we discussed you will likely have some mild shortness of breath with doing activity for a few weeks. You will simply need to take it easy and listen to your body during your recovery. If you feel short of breath simply stop & rest. We checked a walking oxygen test on 08/25/24 and you do not need oxygen for your house. Follow-up - * see your family doctor within 1 week * see [facility] in 6-8 weeks Return to [facility] if - * you have heavy bleeding from any location as noted below * you feel dizzy, lightheaded or have another episode of passing out * you have severe shortness of breath * you have chest pains * any other concerns It was our pleasure to care for you! -Dr Mckinney Coding Diagnoses Acute pulmonary embolism with acute cor pulmonale I26.09 COPD (chronic obstructive pulmonary disease) J44.9 Lower extremity deep venous thrombosis I82.409 Acute bronchitis due to Rhinovirus J20.6 Sinusitis, acute J01.90 Homocysteinemia R79.83 Anxiety F41.9 Type 2 KS (myocardial infarction) I21.A1
[2024-08-26 11:37] VITALS: BP 129/80; PULSE 64
== END 2024-08-26 13:54 | disposition home or self-care (01) | DRG 175 ==
LOC: ED 20:40 → 4W 23:36 → SUATTDRO 23:36 → 4W 08-21 01:29